=== PATIENT | male | born 1965 | race Caucasian/White ===

== ENCOUNTER 2020-09-18 17:16 | Observation (INO) ==
[2020-09-18] MEDS ORDERED: ASPIRIN CHEW 324 MG PO STA (17:38)
[2020-09-18 17:57] LABS: Basophils # (auto) 0.01 K/uL (0-0.2); Basophils % (auto) 0.1 %; Eosinophils # (auto) 0.15 K/uL (0-0.5); Eosinophils % (auto) 1.4 %; Hematocrit (blood only) 45.5 % (42-52); Hemoglobin 15.6 g/dL (14.0-18.0); Immature Granulocytes # (auto) 0.03 K/uL (0.00-0.02); Immature Granulocytes % (auto) 0.3 %; Lymphocytes # (auto) 1.74 K/uL (1.2-3.4); Lymphocytes % (auto) 16.5 %; Mean Corpuscular Hemoglobin 32.3 pg (25-34); Mean Corpuscular Hgb Conc 34.3 g/dL (32-36); Mean Corpuscular Volume 94.2 fL (80-100); Mean Platelet Volume 11.2 fL (7.4-10.4); Monocytes # (auto) 1.27 K/uL (0.11-0.59); Neutrophils # (auto) 7.37 K/uL (1.4-6.5); Neutrophils % (auto) 69.7 %; Platelet Count 303 K/uL (130-400); RDW Coefficient of Variation 13.5 % (11.5-14.5); RDW Standard Deviation 46.4 fL (36.4-46.3); Red Blood Count 4.83 M/uL (4.7-6.1); White Blood Count 10.57 K/uL (4.8-10.8)
[2020-09-18 18:10] LABS: Partial Thromboplastin Ratio 1.1; Partial Thromboplastin Time 29.3 Seconds (21.0-31.0)
[2020-09-18 18:13] LABS: BUN Creatinine Ratio 19.4 (10-20); Calcium 9.5 mg/dl (8.5-10.1); Est GFR (African American) 53.3 ml/min; Potassium 4.2 mmol/L (3.5-5.1)
[2020-09-18 18:18] LABS: Troponin I 0.024 ng/ml (0-0.045)
--- NOTE | 2020-09-18 18:25 | XRay Report ---
XR chest 2V PA/lateral HISTORY: Midsternal Chest Pain COMPARISON: None. FINDINGS: There are low lung volumes. The cardiac silhouette is mildly enlarged. This may be accentua farnaz by the low lung volumes. No pleural effusions. No pneumothorax. No focal lung consolidations to s uggest pneumonia. No evidence for pulmonary edema. IMPRESSION: Mild cardiomegaly. Otherwise, no acute process within the chest. ACT 112: Negative or not required by law. Electronically signed by: Kwaku Andrade M.D. 09/18/2020 6:23 PM
--- NOTE | 2020-09-18 19:15 | Emergency Department Note ---
History of Present Illness General Chief Complaint: Chest Pain Stated Complaint: CHEST PAIN Time Seen by Provider: 09/18/20 17:37 History of Present Illness Provider Complaint: chest pain Onset (ago): day(s) 1 Duration: intermittent and now resolved Onset: during rest Pain Radiation: none Severity: moderate Maximum Pain Intensity: 5 Current Pain Intensity: 0 Quality: + sharp Relieved By: + nothing Exacerbated By: + nothing Context: no recent illness, no recent surgery, no recent immobilization, no recent travel, no trauma/injury, no new medications or no history of DVT/PE Associated symptoms: + nausea and + diaphoresis; no vomiting, no dyspnea, no syncope, no palpitations, no fever, no cough or no leg swelling Home Medications Medication Instructions Recorded Confirmed Type ascorbic acid (vitamin C) 500 mg 500 mg PO QAM 09/18/20 09/18/20 History tablet (Vitamin C) aspirin 81 mg tablet,delayed 162 mg PO QAM 09/18/20 09/18/20 History release (Aspirin Low Dose) Allergies Allergy/AdvReac Type Severity Reaction Status Date / Time No Known Allergies Allergy Unverified 09/18/20 18:15 Past Med/Surg History Medical History (Updated 09/18/20 @ 19:15 by Vito Reynoso) HLD (hyperlipidemia) HTN (hypertension) Surgical History (Updated 09/18/20 @ 19:10 by Vito Reynoso) No pertinent past surgical history Family History (Updated 09/18/20 @ 19:11 by Vito Reynoso) Other CHF (congestive heart failure) Cardiomyopathy Heart disease Hypertension Myocardial infarction Review of Systems A total of 10 systems reviewed and were otherwise negative Physical Exam Vital Signs Vital Signs - 24 hr 09/18/20 17:28 09/18/20 17:31 09/18/20 17:46 Temperature 37.5 C Temperature Source Temporal Artery Scan Pulse Rate 94 H Pulse Rate [Left Finger] 78 90 Pulse Rhythm [Left Finger] Regular Regular Pulse Strength [Left Finger] Normal Normal Respiratory Rate 20 20 20 Respiratory Effort / Characteristics Non-Labored Spontaneous Non-Labored Spontaneous Non-Labored Spontaneous Respiratory Depth Normal Normal Normal Respiratory Pattern Regular Regular Blood Pressure 182/97 H Blood Pressure [Right Arm] 165/103 H 132/98 Blood Pressure Mean 125 Blood Pressure Mean [Right Arm] 123 109 Blood Pressure Position Sitting Blood Pressure Position [Right Arm] Sitting Sitting Pulse Oximetry 93 97 98 Oxygen Delivery Method Room Air Room Air Room Air Sepsis Recent Fever Within 48 Hours No Sepsis New/Unexplained Change in Mental Status N/A Sepsis Action Taken by Nursing No Action Required 09/18/20 17:56 09/18/20 18:47 Temperature Temperature Source Pulse Rate Pulse Rate [Left Finger] 88 Pulse Rhythm [Left Finger] Regular Pulse Strength [Left Finger] Normal Respiratory Rate 20 Respiratory Effort / Characteristics Non-Labored Spontaneous Respiratory Depth Normal Respiratory Pattern Regular Blood Pressure Blood Pressure [Right Arm] 146/84 H Blood Pressure Mean Blood Pressure Mean [Right Arm] 104 Blood Pressure Position Blood Pressure Position [Right Arm] Sitting Pulse Oximetry 95 96 Oxygen Delivery Method Room Air Room Air Sepsis Recent Fever Within 48 Hours Sepsis New/Unexplained Change in Mental Status Sepsis Action Taken by Nursing Physical Exam GENERAL: He is oriented to person, place, and time. He appears well-developed and well-nourished. He does not appear distressed. HENT: Exam performed. - Head: Normocephalic and atraumatic. - Right Ear: External ear normal. No mastoid tenderness. - Left Ear: External ear normal. No mastoid tenderness. - Mouth/Throat: The oropharynx is clear and moist. No trismus in the jaw. No dental abscesses or uvula swelling. No oropharyngeal exudate or tonsillar absces ses. EYES: Conjunctivae and EOM are normal. Pupils are equal, round, and reactive to light. Right eye exhibits no discharge. Left eye exhibits no discharge. No scleral icterus. NECK: Normal range of motion. Neck supple. No JVD present. No spinous process tenderness present. No carotid bruit present. No rigidity. No tracheal deviation and normal range of motion present. No Brudzinski's sign and no Kernig's sign noted. CV: Normal rate, regular rhythm, normal heart sounds and intact distal pulses. There is no peripheral edema. Palpable radial pulses bue. PULM/CHEST: Effort normal and breath sounds normal. No respiratory distress. No stridor. He has no wheezes. He has no rales. - Chest Wall: He exhibits no tenderness. ABD: The abdomen is soft. Bowel sounds are normal. He has no distension. No mass is present. There is no tenderness. There is no rebound, no guarding, no Jalloh's sign and no tenderness at McBurney's point. Rovsig negative. MUSC/SKEL: Normal range of motion. There is no peripheral edema, tenderness or deformity. LYMPH: No cervical adenopathy. NEURO: He is alert and oriented to person, place, and time. He has normal strength. No cranial nerve deficit or sensory deficit. Coordination and gait normal. GCS eye subscore is 4. GCS verbal subscore is 5. GCS motor subscore is 6. Cerebellar tests wnl. SKIN: Skin is warm and dry. He is not diaphoretic. PSYCH: He has a normal mood and affect. Behavior is normal. Judgment and thought content normal. Course Course 1736: The patient was evaluated in room B1. A complete history and physical exam was performed Cardiac monitoring: An order was placed for continuous cardiac monitoring. The monitor shows a rate of 90 with sinus rhythm EMR reviewed. No previous EKGs to compare. EKG does show T wave inversions in leads I and aVL. Will conduct cardiac panel and plan on admitting the patient to the hospital service for rule out ACS given his EKG. 1900: Vital signs stable. Labs and imaging within normal limits. Discussed case with Dr. [facility] hospitalist who agrees to evaluate the patient for admission. Administered Medications Discontinued Medications Aspirin (Aspirin Chew 324 Mg) 324 mg PO NOW STA Stop: 09/18/20 17:39 Last Admin: 09/18/20 17:52 Dose: 324 mg Documented by: [id number] Medical Decision Making Laboratory Data Result diagrams: 09/18/20 17:45 09/18/20 17:45 Labs: Lab Results 09/18/20 09/18/20 09/18/20 Range/Units 17:45 17:45 17:45 WBC 10.57 (4.8-10.8) K/uL RBC 4.83 (4.7-6.1) M/uL Hgb 15.6 (14.0-18.0) g/dL Hct 45.5 (42-52) % MCV 94.2 (80-100) fL MCH 32.3 (25-34) pg MCHC 34.3 (32-36) g/dL RDW Std Deviation 46.4 H (36.4-46.3) fL RDW Coeff of Andrew 13.5 (11.5-14.5) % Plt Count 303 (130-400) K/uL MPV 11.2 H (7.4-10.4) fL Immature Gran % (Auto) 0.3 % Neut % (Auto) 69.7 % Lymph % (Auto) 16.5 % [place] % (Auto) 12.0 % Eos % (Auto) 1.4 % Baso % (Auto) 0.1 % Neut # (Auto) 7.37 H (1.4-6.5) K/uL Lymph # (Auto) 1.74 (1.2-3.4) K/uL [place] # (Auto) 1.27 H (0.11-0.59) K/uL Eos # (Auto) 0.15 (0-0.5) K/uL Baso # (Auto) 0.01 (0-0.2) K/uL Immature Gran # (Auto) 0.03 H (0.00-0.02) K/uL PT 10.0 (9.0-12.0) Seconds INR 1.0 (0.9-1.1) APTT 29.3 (21.0-31.0) Seconds PTT Ratio 1.1 Sodium 138 (136-145) mmol/L Potassium 4.2 (3.5-5.1) mmol/L Chloride 107 (98-107) mmol/L Carbon Dioxide 29 (21-32) mmol/L Anion Gap 2.0 L (3-11) BUN 32 H (7-18) mg/dl Creatinine 1.67 H (0.6-1.4) mg/dl Est Cr Clr Drug Dosing 73.0 ml/min Est GFR ( Amer) 53.3 ml/min Est GFR (Non-Af Amer) 46.0 ml/min BUN/Creatinine Ratio 19.4 (10-20) Glucose 102 H (70-99) mg/dl Calcium 9.5 (8.5-10.1) mg/dl Troponin I 0.024 (0-0.045) ng/ml Lipase 150 (73-393) U/L COVID-19 Eval Order SARS-CoV-2 (PCR) (Negative) 09/18/20 09/18/20 Range/Units 18:00 18:00 WBC (4.8-10.8) K/uL RBC (4.7-6.1) M/uL Hgb (14.0-18.0) g/dL Hct (42-52) % MCV (80-100) fL MCH (25-34) pg MCHC (32-36) g/dL RDW Std Deviation (36.4-46.3) fL RDW Coeff of Andrew (11.5-14.5) % Plt Count (130-400) K/uL MPV (7.4-10.4) fL Immature Gran % (Auto) % Neut % (Auto) % Lymph % (Auto) % [place] % (Auto) % Eos % (Auto) % Baso % (Auto) % Neut # (Auto) (1.4-6.5) K/uL Lymph # (Auto) (1.2-3.4) K/uL [place] # (Auto) (0.11-0.59) K/uL Eos # (Auto) (0-0.5) K/uL Baso # (Auto) (0-0.2) K/uL Immature Gran # (Auto) (0.00-0.02) K/uL PT (9.0-12.0) Seconds INR (0.9-1.1) APTT (21.0-31.0) Seconds PTT Ratio Sodium (136-145) mmol/L Potassium (3.5-5.1) mmol/L Chloride (98-107) mmol/L Carbon Dioxide (21-32) mmol/L Anion Gap (3-11) BUN (7-18) mg/dl Creatinine (0.6-1.4) mg/dl Est Cr Clr Drug Dosing ml/min Est GFR ( Amer) ml/min Est GFR (Non-Af Amer) ml/min BUN/Creatinine Ratio (10-20) Glucose (70-99) mg/dl Calcium (8.5-10.1) mg/dl Troponin I (0-0.045) ng/ml Lipase (73-393) U/L COVID-19 Eval Order Covid19 at [facility] SARS-CoV-2 (PCR) NEGATIVE (Negative) Imaging Data Chest x-ray: Radiologist's impression: Chest X-Ray 09/18/20 17:38 XR chest 2V PA/lateral HISTORY: Midsternal Chest Pain COMPARISON: None. FINDINGS: There are low lung volumes. The cardiac silhouette is mildly enlarged. This may be accentuated by the low lung volumes. No pleural effusions. No pneumothorax. No focal lung consolidations to suggest pneumonia. No evidence for pulmonary edema. IMPRESSION: Mild cardiomegaly. Otherwise, no acute process within the chest. ACT 112: Negative or not required by law. Electronically signed by: Kwaku Andrade M.D. 09/18/2020 6:23 PM ECG Data Additional Comments: EKG #1 at 1731: Sinus rhythm with rate of 89. GA QRS and QTc intervals within normal limits. No ST elevation or ST depression. T wave inversion in leads I and aVL. EKG #2 at 1752:sinus rhythm with rate of 87. GA QRS and QTc intervals within normal limits. No ST elevation or ST depression. T wave inversions in leads I and aVL MDM Narrative 1737: The patient was evaluated in room B1. A complete history and physical exam was performed Cardiac monitoring: An order was placed for continuous cardiac monitoring. The monitor shows a rate of 90 with sinus rhythm EMR reviewed. No previous EKGs to compare. EKG does show T wave inversions in leads I and aVL. Will conduct cardiac panel and plan on admitting the patient to the hospital service for rule out ACS given his EKG. 1900: Vital signs stable. Labs and imaging within normal limits. Discussed case with Dr. [facility] hospitalist who agrees to evaluate the patient for admission. Impression & Plan Chest pain Discharge Plan Visit Data Chief Complaint: Chest Pain Stated Complaint: CHEST PAIN ED Provider: Vito Reynoso Discharge Problem: Chest pain Patient Disposition: Being Evaluated by Hospitalist Forms Stand Alone Forms: [facility] [employer] Prescriptions Prescriptions: No Action aspirin [Aspirin Low Dose] 81 mg Tablet,Delayed Release (Dr/Ec) 162 mg PO QAM RF: 0 ascorbic acid (vitamin C) [Vitamin C] 500 mg Tablet 500 mg PO QAM RF: 0 Referrals Referrals: Liya Ames [Primary Care Provider] - Discharge Problem: Chest pain Qualifiers: Chest pain type: unspecified Qualified Code(s): R07.9 - Chest pain, unspecified
[2020-09-18] MEDS ORDERED: METOPROLOL TARTRATE 1 MG/ML VIAL IV STA (19:27)
--- NOTE | 2020-09-18 19:36 | History & Physical Report ---
Date of Service September 18, 2020 Assessment & Plan (1) Chest pain: Plan: R/o Ischemia patient with risk factors of obesity, family history, HLD, HTN, Tobacco use - Symptoms are concerning for ischemia - This far out from his initial symptoms would expect to see higher evidence of Troponin I, with no comparison ECG available - Follow ECG and Troponi I for dynamic change or rise and fall - Metoprolol 5mg IV q6 scheduled to decrease his double product, Hold for HR 60 - Continue aspirin - NPO after midnight, if second troponin negative stress test with ECHO in morning - Will need pharmacologic intervention for outpatient HTN (2) HLD (hyperlipidemia): Plan: Myalgias with atorvastatin in the past reportedly - lipid panel in the morning attempt another statin pending on lipid panel (3) HTN (hypertension): Plan: As above (4) Obesity: Plan: Will need to reduce weight for morbidity modification History of Present Illness Primary Care Provider: Liya Ames 55 YOM with past medical history of: Obesity, HTN, HLD. Patient was woken up this morning at approx. 0230 with sharp chest pain substernal left side of his chest that he ranked 8/10 which was followed by nausea without vomiting, dyspnea and diaphoresis, this pain did not radiate anywhere. He rested and it went away, he got up in the morning took his aspirin and went to work. He works for [employer] and worked a full day today, without return of the chest pain. He did note however that with walking and exertion, that he had some dyspnea. Patient does chew tobacco, drinks occasionally throughout the year, " a case a beer a year if that". He has a family history of father having an MA followed by heart failure and at 74 years of age. A brother that has had "chest pain". He denies any recent illnesses. He was on atorvastatin reportedly in the past but stopped it secondary to myalgias, for his HTN he was previously on lisinopril, which stopped as well as HCTZ. he does take a daily 81mg ASA. In the EMD he remains chest pain free, had an ECG done, which we do not have a comparison for. This showed t wave inversions in I and AVL with ST up sloping in V2 and V3. His initial troponin was 0.024. Patient will be observed overnight on telemetry unit, trending of his ECG and Troponin I, started on IV BB and continue asa. He has not had his COVID vaccine and COVID test on admission is Negative. Allergies Allergy/AdvReac Type Severity Reaction Status Date / Time No Known Allergies Allergy Unverified 09/18/20 18:15 Home Medications Medication Instructions Recorded Confirmed Type ascorbic acid (vitamin C) 500 mg 500 mg PO QAM 09/18/20 09/18/20 History tablet (Vitamin C) aspirin 81 mg tablet,delayed 162 mg PO QAM 09/18/20 09/18/20 History release (Aspirin Low Dose) Past Med/Surg History Medical History (Updated 09/18/20 @ 20:19 by NICOLE Oliver) HLD (hyperlipidemia) HTN (hypertension) Surgical History (Updated 09/18/20 @ 19:52 by NICOLE Oliver) No pertinent past surgical history S/P repair of hydrocele Family History Other CHF (congestive heart failure) Cardiomyopathy Heart disease Hypertension Myocardial infarction Social History (Updated 09/18/20 @ 19:48 by NICOLE Oliver) Tobacco Type: Smokeless Tobacco (Dip or Chew) Do You Dip or Chew Tobacco: Yes; Hx Alcohol Use: Yes (infrequent use) Alcohol Intake Frequency: Monthly or Less Hx Substance Use: No marital status: Current Living Situation: Spouse current occupational status: employed current occupation: [employer] Feels Safe at Home: Yes Review of Systems Review of Systems: REVIEW OF SYSTEMS: Constitutional: No fever, sweats or chills Eyes: No diplopia, no worsening or blurred vision ENT: normal hearing, no trouble swallowing Respiratory: No cough, sputum, dyspnea at rest or on exertion Cardiovascular: (+) chest pain, tightness or palpitations Abdomen: (+) per HPI No pain, nausea, vomiting, diarrhea or constipation Musculoskeletal: (+) left knee joint pain, NO calf pain, swelling Neurologic: No weakness, numbness/tingling, or balance problems Psychiatric: No anxiety or depression Skin: No rash or itch Physical Exam Physical Exam: PHYSICAL EXAM: General: awake, alert, no apparent distress Head: Normocephalic, atraumatic ENT: PERRL, EOMI, no pharyngeal exudate, mucous membranes moist Neuro: AAO x 3, speech clear and appropriate, strength intact bilaterally 5/5, sensation intact and equal all extremities and dermatomes, no pronator drift Chest: equal rise and fall of the chest, no accessory muscle use, no heaves or thrills, Clear to auscultation, on room air, Cardiac: Regular rate and rhythm, telemetry reviewed- NSR, skin warm dry, cap refill <3 seconds, peripheral pulses +2 no JVD, no murmur, no edema GI: NABS x 4 quadrants, soft, nontender to palpation, no rebound, guarding or tenderness : Spontaneously voiding, no pain, no CVA tenderness, Extremities: Normal inspection, no peripheral edema or erythema, calfs nontender to palpation Psych: Normal mood and affect Skin: no rash or erythema Results & Data Results & Data ([facility]) Vital Signs (Past 12 Hours) Vital Signs Temp Pulse Pulse Resp BP BP Pulse Ox 09/18/20 19:05 84 18 161/83 H 95 09/18/20 18:47 88 20 146/84 H 96 09/18/20 17:56 95 09/18/20 17:46 90 20 132/98 98 09/18/20 17:31 78 20 165/103 H 97 09/18/20 17:28 37.5 C 94 H 20 182/97 H 93 Laboratory Results Abnormal lab results 09/18/20 09/18/20 Range/Units 17:45 17:45 RDW Std Deviation 46.4 H (36.4-46.3) fL MPV 11.2 H (7.4-10.4) fL Neut # (Auto) 7.37 H (1.4-6.5) K/uL [place] # (Auto) 1.27 H (0.11-0.59) K/uL Immature Gran # (Auto) 0.03 H (0.00-0.02) K/uL Anion Gap 2.0 L (3-11) BUN 32 H (7-18) mg/dl Creatinine 1.67 H (0.6-1.4) mg/dl Glucose 102 H (70-99) mg/dl Diagnostic Findings Chest X-Ray 09/18/20 17:38 XR chest 2V PA/lateral HISTORY: Midsternal Chest Pain COMPARISON: None. FINDINGS: There are low lung volumes. The cardiac silhouette is mildly enlarged. This may be accentuated by the low lung volumes. No pleural effusions. No pneumothorax. No focal lung consolidations to suggest pneumonia. No evidence for pulmonary edema. IMPRESSION: Mild cardiomegaly. Otherwise, no acute process within the chest. ACT 112: Negative or not required by law. Electronically signed by: Kwaku Andrade M.D. 09/18/2020 6:23 PM Medications Administered Discontinued Medications Aspirin (Aspirin Chew 324 Mg) 324 mg PO NOW STA Stop: 09/18/20 17:39 Last Admin: 09/18/20 17:52 Dose: 324 mg Documented by: [id number] ECG Additional Comments: Normal sinus rhythm Possible Left atrial enlargement Left ventricular hypertrophy T wave abnormality, consider lateral ischemia Abnormal ECG When compared with ECG of 18-SEP-2020 17:31, Code Status & VTE Plan Code Status CODE: FULL VTE: SCD's, Heparin 5000 units sub q VTE Prophylaxis Plan VTE Prophylaxis will be ordered: Yes Supervising Physician Co-Signing Physician Notes I supervised NICOLE Capps on this admission. I interviewed and examined the patient independently of him. The plan is as written in his note except for any following changes/exceptions: None 55yo M w/ hx of HTN and family cardiac history who presents with moderately suspicious symptoms for ACS. EKG with some lateral ST depression and TWIs; however, troponin is only 0.02 after hours of chest pain which would point away from active ischemic event. - Will trend troponins and EKGs - If negative, will order treadmill stress echo for the AM - Plan discussed with the patient and his who are satisfied with the plan. PG Care Time/CCT Total # of Minutes Spent Total Time Spent with Patient: Total time spent is greater than 50% in coordination of care (as documented) at patient's floor/unit and/or counseling patient: Coding Level of Care Code INT OBSERVATION CARE 70M LVL 3 Diagnoses Chest pain R07.9 Chest pain type: unspecified HLD (hyperlipidemia) E78.5 HTN (hypertension) I10 Obesity E66.9 (1) Chest pain Chest pain type: unspecified Qualified Code(s): R07.9 - Chest pain, unspecified
[2020-09-18] MEDS ORDERED: NITROGLYCERIN SL 0.4 MG/TAB TAB SL PRN (23:23)
[2020-09-18] MEDS ORDERED: ONDANSETRON INJ 2 MG/ML 2 ML VIAL IV PRN (23:23)
[2020-09-18] MEDS ORDERED: ACETAMINOPHEN 325 MG TAB PO PRN (23:23)
[2020-09-19] MEDS: METOPROLOL TARTRATE 1 MG/ML VIAL IV SCH ×3 (00:58→11:58)
[2020-09-19] MEDS: HEPARIN SOD 5,000 UNIT/0.5 ML VIAL SQ SCH ×3 (00:58→13:56)
[2020-09-19 07:10] LABS: Basophils # (auto) 0.03 K/uL (0-0.2); Basophils % (auto) 0.3 %; Eosinophils # (auto) 0.36 K/uL (0-0.5); Eosinophils % (auto) 3.9 %; Hemoglobin 14.3 g/dL (14.0-18.0); Immature Granulocytes # (auto) 0.02 K/uL (0.00-0.02); Immature Granulocytes % (auto) 0.2 %; Lymphocytes # (auto) 1.53 K/uL (1.2-3.4); Lymphocytes % (auto) 16.6 %; Mean Corpuscular Hemoglobin 31.6 pg (25-34); Mean Corpuscular Hgb Conc 33.3 g/dL (32-36); Mean Corpuscular Volume 94.9 fL (80-100); Mean Platelet Volume 11.2 fL (7.4-10.4); Monocytes # (auto) 1.18 K/uL (0.11-0.59); Monocytes % (auto) 12.8 %; Neutrophils # (auto) 6.08 K/uL (1.4-6.5); Neutrophils % (auto) 66.2 %; Platelet Count 256 K/uL (130-400); RDW Coefficient of Variation 13.6 % (11.5-14.5); RDW Standard Deviation 47.3 fL (36.4-46.3); Red Blood Count 4.53 M/uL (4.7-6.1)
[2020-09-19 07:52] LABS: Estimated Average Glucose 131 mg/dl; Hemoglobin A1C 6.2 % (4.5-5.6)
[2020-09-19 07:57] LABS: BUN Creatinine Ratio 19.7 (10-20); Calcium 8.6 mg/dl (8.5-10.1); Creatinine Clr Calc Pharmacy 84.7 ml/min; Est GFR (African American) 64.3 ml/min; Est GFR (Non-African American) 55.5 ml/min; Magnesium 2.1 mg/dl (1.8-2.4); Potassium 4.2 mmol/L (3.5-5.1)
--- NOTE | 2020-09-19 08:08 | Electrocardiogram Report ---
Test Reason : Blood Pressure : / mmHG Vent. Rate : 087 BPM Atrial Rate : 087 BPM P-R Int : 172 ms QRS Dur : 092 ms QT Int : 378 ms P-R-T Axes : 045 -15 103 degrees QTc Int : 454 ms Normal sinus rhythm Left atrial enlargement Left ventricular hypertrophy with repolarization abnormality Minor Anterior ST elevation, most consistent with repolarization variant Abnormal ECG When compared with ECG of 18-SEP-2020 17:31, No significant change was found Confirmed by Frank Aguirre ([id number]) on 09/19/2020 8:07:45 AM Referred By: Ben Blanton Confirmed By:Frank Aguirre
[2020-09-19] MEDS ORDERED: ASPIRIN 81 MG ECTAB PO SCH (09:00)
[2020-09-19] MEDS ORDERED: ASCORBIC ACID 500 MG TAB PO SCH (09:00)
--- NOTE | 2020-09-19 09:07 | Electrocardiogram Report ---
Test Reason : Blood Pressure : / mmHG Vent. Rate : 089 BPM Atrial Rate : 089 BPM P-R Int : 176 ms QRS Dur : 090 ms QT Int : 372 ms P-R-T Axes : 052 -15 096 degrees QTc Int : 452 ms Normal sinus rhythm Left atrial enlargement Left ventricular hypertrophy with repolarization abnormality Abnormal ECG No previous ECGs available Confirmed by Frank Aguirre ([id number]) on 09/19/2020 9:07:10 AM Referred By: Ben Blanton Confirmed By:Frank Aguirre
--- NOTE | 2020-09-19 09:08 | Electrocardiogram Report ---
Test Reason : Blood Pressure : / mmHG Vent. Rate : 078 BPM Atrial Rate : 078 BPM P-R Int : 186 ms QRS Dur : 096 ms QT Int : 416 ms P-R-T Axes : 068 -08 080 degrees QTc Int : 474 ms Normal sinus rhythm Left atrial enlargement Nonspecific T wave abnormality Lateral leads Prolonged QT Abnormal ECG When compared with ECG of 18-SEP-2020 17:52, Voltage criteria for left ventricular hypertrophy no longer present Confirmed by Frank Aguirre ([id number]) on 09/19/2020 9:07:51 AM Referred By: Ben Blanton Confirmed By:Frank Aguirre
--- NOTE | 2020-09-19 16:43 | XCELERA ---
[id number]
--- NOTE | 2020-09-19 19:34 | Discharge Summary ---
Date of Service September 19, 2020 Admission HPI Per Admitting Provider 55 YOM with past medical history of: Obesity, HTN, HLD. Patient was woken up this morning at approx. 0230 with sharp chest pain substernal left side of his chest that he ranked 8/10 which was followed by nausea without vomiting, dyspnea and diaphoresis, this pain did not radiate anywhere. He rested and it went away, he got up in the morning took his aspirin and went to work. He works for [employer] and worked a full day today, without return of the chest pain. He did note however that with walking and exertion, that he had some dyspnea. Patient does chew tobacco, drinks occasionally throughout the year, " a case a beer a year if that". He has a family history of father having an OR followed by heart failure and at 74 years of age. A brother that has had "chest pain". He denies any recent illnesses. He was on atorvastatin reportedly in the past but stopped it secondary to myalgias, for his HTN he was previously on lisinopril, which stopped as well as HCTZ. he does take a daily 81mg ASA. In the EMD he remains chest pain free, had an ECG done, which we do not have a comparison for. This showed t wave inversions in I and AVL with ST up sloping in V2 and V3. His initial troponin was 0.024. Patient will be observed overnight on telemetry unit, trending of his ECG and Troponin I, started on IV BB and continue asa. He has not had his COVID vaccine and COVID test on admission is Negative. Principal Diagnosis chest pain with non diagnostic stress test uncontrolled hypertension obesity Discharge Exam The patient appeared no distress but morbidly obese l Vital signs as documented. Lungs are clear to auscultation and appear unlabored Cardiac exam, Rhythm is regular.. No murmurs, rubs or gallops. Abdominal exam reveals normal bowel sounds, soft non tender, no masses Extremities are nonedematous and both pedal pulses are normal. Neurologic exam is alert and oriented, no focal loss of strength or sensation Skin is without bruises or rashes Psychologically is without concerns for anxiety or depression. Discharge Data Allergies Allergy/AdvReac Type Severity Reaction Status Date / Time No Known Allergies Allergy Unverified 09/18/20 18:15 Consultations 07/27/21 19:02 ED Decision to Admit Stat Hospital Course (1) Chest pain: No acute troponin change or EKG change stress test did not show any significant wall motion abnormalities but was nondiagnostic to the failure to achieve maximum predicted heart rate - Follow ECG and Troponi I for dynamic change or rise and fall -Choose metoprolol for blood pressure control as it can inhibit weight loss in a morbidly obese patients - Continue aspirin will start Dyazide and amlodipine encourage marked lifestyle changes and follow-up with family doctor in short order Resting echo shows EF of 55-60 normal LV function mild aortic regurgitation mild pericardial effusion without evidence tamponade physiology significant LVH (2) HLD (hyperlipidemia): Myalgias with atorvastatin in the past reportedly - lipid panel in the morning attempt another statin pending on lipid panel (3) HTN (hypertension): Amlodipine started (4) Obesity: Will need to reduce weight for morbidity modification recommend outpatient counseling to markedly change his risk factors of cardiovascular disease Total Time Total Time Spent Total Time Spent (In Minutes): It required greater than 30 minutes to prepare this patient for discharge Discharge Plan Discharge Items Patient Disposition: Home - Self-Care Reason For Visit: CHEST PAIN R/O ISCHEMIA Discharge Diagnosis: chest pain uncontrolled hypertension chronic renal failure Activity: Per Instructions section Activity Comment: gradually increase physical activity Non-emergency contact: Primary Care Provider Call non-emergency contact if: you have any medication questions and your symptoms worsen Follow-up/Referrals: Liya Ames [Primary Care Provider] - 09/24/20 3:10 pm (Dr Sen and Dr Floyd) Diet: Heart Healthy and Low Sodium (2gm) Addtl Attending Provider Instructions: Please follow up with your primary care to make a plan to reduce your cardiovascular risk factors some suggestions would be to keep your daily sodium less than 2000mg a day reduce or eliminate alcohol and caffiene start walking, first slow and short distances your stress test was non diagnositc, limited by high blood pressure your primary care may decide to re test you once your blood pressure is better controlled. There are many blood pressure medications, we will start with one and you family doctor may wish to adjust or change this over time Pending Studies at Discharge: No Stand-Alone Forms: [employer], Smoking Cessation Medications and DC Order Prescriptions: New spironolacton-hydrochlorothiaz 25-25 mg tablet 1 tab PO DAILY Qty: 30 RF: 0 amlodipine 5 mg tablet 5 mg PO DAILY Qty: 30 RF: 0 Continued aspirin [Aspirin Low Dose] 81 mg Tablet,Delayed Release (Dr/Ec) 162 mg PO QAM RF: 0 ascorbic acid (vitamin C) [Vitamin C] 500 mg Tablet 500 mg PO QAM RF: 0 Discharge Orders: Discharge Order (Routine); Ordered 09/19/20 Ordered By: Rocael Pedersen/Other Patient Handouts: A1C, Prediabetes, 5 Steps for Eating Healthier Admission Data Admit Date/Time: 09/18/20 19:32 Attending Provider: Rocael Delgadillo Admit Provider: Uziel Melvin Primary Care Provider: Liya Ames Other Providers: Adam Swift Other Interventions: Discharge Summary Assessment (RN) Last Done: 09/19/20 15:55 Coding Level of Care Code D/C DAY MANAGEMENT >30 MINS Diagnoses Chest pain R07.9 Chest pain type: unspecified HLD (hyperlipidemia) E78.5 HTN (hypertension) I10 Obesity E66.9
== END 2020-09-19 16:56 | disposition home or self-care (01) ==
LOC: ED 17:16 → 2N 17:16 → SUATTDRO 19:32 → 2N 23:00

== ENCOUNTER 2020-10-05 06:05 | Inpatient (IN) ==
[2020-10-05 06:42] LABS: Basophils # (auto) 0.03 K/uL (0-0.2); Basophils % (auto) 0.2 %; Eosinophils # (auto) 0.08 K/uL (0-0.5); Eosinophils % (auto) 0.4 %; Hematocrit (blood only) 38.5 % (42-52); Hemoglobin 13.1 g/dL (14.0-18.0); Immature Granulocytes # (auto) 0.07 K/uL (0.00-0.02); Immature Granulocytes % (auto) 0.4 %; Lymphocytes # (auto) 1.38 K/uL (1.2-3.4); Lymphocytes % (auto) 7.1 %; Mean Corpuscular Hemoglobin 31.5 pg (25-34); Mean Corpuscular Volume 92.5 fL (80-100); Mean Platelet Volume 10.3 fL (7.4-10.4); Monocytes # (auto) 2.45 K/uL (0.11-0.59); Monocytes % (auto) 12.6 %; Neutrophils # (auto) 15.45 K/uL (1.4-6.5); Neutrophils % (auto) 79.3 %; Platelet Count 570 K/uL (130-400); RDW Coefficient of Variation 13.8 % (11.5-14.5); RDW Standard Deviation 46.5 fL (36.4-46.3); Red Blood Count 4.16 M/uL (4.7-6.1); White Blood Count 19.46 K/uL (4.8-10.8)
[2020-10-05 07:02] LABS: Albumin Level 2.7 gm/dl (3.4-5.0); BUN Creatinine Ratio 23.8 (10-20); Calcium 9.3 mg/dl (8.5-10.1); Creatinine Clr Calc Pharmacy 41.7 ml/min; Est GFR (African American) 28.4 ml/min; Est GFR (Non-African American) 24.5 ml/min; Partial Thromboplastin Ratio 1.2; Partial Thromboplastin Time 32.8 Seconds (21.0-31.0); Potassium 4.1 mmol/L (3.5-5.1)
[2020-10-05] MEDS ORDERED: SODIUM CHLORIDE 0.9% 1000ML 1,000 ML IV ONE (07:05)
--- NOTE | 2020-10-05 07:08 | XRay Report ---
SINGLE VIEW CHEST CLINICAL HISTORY: Atypical chest pain. FINDINGS: An AP, portable, upright chest radiograph is compared to study dated 09/18/2020. The heart i s enlarged. The pulmonary vasculature is noncongested. There is mild elevation of the right hemidiaph ragm and bibasilar atelectasis. No airspace consolidation or large pleural effusion is identified. No pneumothorax is seen. The bony thorax is grossly intact. IMPRESSION: Cardiomegaly with no acute cardiopulmonary abnormality. ACT 112: Negative or not required by law. Electronically signed by: Garrett Kelly M.D. 10/05/2020 7:06 AM
--- NOTE | 2020-10-05 07:21 | Emergency Department Note ---
History of Present Illness General Chief complaint: Cardiac Assessment Stated complaint: PAIN LEFT CHEST WHEN BREATHING Time Seen by Provider: 10/05/20 06:33 Source: patient History of Present Illness Provider complaint: Chest pain Onset (ago): hour(s) Location: chest and right Radiation: non-radiation Pain Consistency: + constant Maximum Pain Intensity: 6 Quality: + sharp (When he takes a deep breath) and + dull Relieved By: + other (Leaning forward) Exacerbated By: + other (Deep breaths and lying backwards; not affected by food intake) Associated symptoms: + chest pain, + cough (Dry cough since starting high blood pressure medications 3 weeks ago) and + shortness of breath; no fever/chills or no nausea/vomiting This is a 55-year-old male who presents with chest pain starting at 7 PM last night. He describes it as sharp pain on the right side of his chest without radiation. He rates it a 6 out of 10 in severity. It is worse when he takes deep breath or if he lies back. It is not affected by food intake. He states it feels better when he leans forward. The pain is dull but when he takes a deep breath it is sharp. He has associated shortness of breath. He denies any leg swelling or pain but his states that in February his left leg was red and painful. He had a Doppler at that time which was negative for DVT. He has no history of PE or DVT. He has had no recent immobilization. He denies any fever or recent illness. He did not get the COVID-19 vaccination. He has had no abdominal pain, vomiting, diarrhea, rash or tick bite. He denies any urinary symptoms. Home Medications Medication Instructions Recorded Confirmed Type ascorbic acid (vitamin C) 500 mg 500 mg PO QAM 09/18/20 10/05/20 History tablet (Vitamin C) aspirin 81 mg tablet,delayed 162 mg PO QAM 09/18/20 10/05/20 History release (Aspirin Low Dose) amlodipine 5 mg tablet (Norvasc) 5 mg PO QAM 10/05/20 10/05/20 History spironolactone 25 1 tab PO QAM 10/05/20 10/05/20 History mg-hydrochlorothiazide 25 mg tablet (Aldactazide) Allergies Allergy/AdvReac Type Severity Reaction Status Date / Time No Known Allergies Allergy Unverified 10/05/20 07:49 Past Med/Surg History Medical History HLD (hyperlipidemia) HTN (hypertension) Surgical History No pertinent past surgical history S/P repair of hydrocele Family History Other CHF (congestive heart failure) Cardiomyopathy Heart disease Hypertension Myocardial infarction Social History Smoking Status: Never smoker Tobacco Type: Smokeless Tobacco (Dip or Chew) Second Hand Exposure: No; Do You Dip or Chew Tobacco: Yes; Tobacco Cessation Education Requested by Patient: No Hx Alcohol Use: Yes Alcohol type: beer Alcohol Intake Frequency: Monthly or Less Hx Substance Use: No Preferred Language: Bahamian Communication Ability: Effective Dry Cure Worker Required: No Beliefs That Will Affect Care: None marital status: Current Living Situation: Spouse Current Living Situation Comment: Ruben Lopez (story and 02/24) current occupational status: employed current occupation: [employer] Other Information That Helps Us Care for You: No Feels Safe at Home: Yes Safety Concerns: Feels Safe At This Time Assistive Devices: Glasses Review of Systems See HPI for pertinent positives & negatives. and A total of 10 systems reviewed and were otherwise negative Physical Exam Vital Signs Vital Signs - 24 hr 10/05/20 06:09 10/05/20 06:18 10/05/20 06:30 Temperature 36.9 C Temperature Source Temporal Artery Scan Pulse Rate 91 H 87 85 Pulse Rate from SpO2 Sensor 87 86 Respiratory Rate 20 30 H 21 Respiratory Effort / Characteristics Non-Labored Spontaneous Respiratory Depth Normal Blood Pressure 118/73 133/71 129/71 Blood Pressure Mean 88 91 90 Pulse Oximetry 93 94 93 Oxygen Delivery Method Room Air Sepsis Recent Fever Within 48 Hours No Sepsis New/Unexplained Change in Mental Status No Sepsis Action Taken by Nursing No Action Required 10/05/20 06:32 10/05/20 07:00 10/05/20 07:30 Temperature Temperature Source Pulse Rate 85 83 Pulse Rate from SpO2 Sensor 85 83 Respiratory Rate 20 21 Respiratory Effort / Characteristics Respiratory Depth Blood Pressure 129/74 134/84 Blood Pressure Mean 92 100 Pulse Oximetry 94 95 Oxygen Delivery Method Room Air Room Air Sepsis Recent Fever Within 48 Hours Sepsis New/Unexplained Change in Mental Status Sepsis Action Taken by Nursing 10/05/20 08:00 10/05/20 09:30 10/05/20 10:01 Temperature Temperature Source Pulse Rate 79 80 79 Pulse Rate from SpO2 Sensor 78 Respiratory Rate 21 23 Respiratory Effort / Characteristics Respiratory Depth Blood Pressure 102/50 L 133/75 150/92 H Blood Pressure Mean 67 94 111 Pulse Oximetry 94 Oxygen Delivery Method Sepsis Recent Fever Within 48 Hours Sepsis New/Unexplained Change in Mental Status Sepsis Action Taken by Nursing Constitutional: Vital signs reviewed. Eyes: Pupils are equal round reactive to light. Conjunctiva are noninjected. ENT: Pharynx is clear without erythema or exudate. Mucous membranes are moist. Neck supple without meningeal signs. Respiratory: Clear to auscultation bilaterally. Breath sounds are equal bilaterally. Cardiovascular: Regular rate and rhythm. No rubs or gallops. GI: Soft, nondistended and nontender. Bowel sounds are present. Musculoskeletal: No peripheral edema. No lower extremity tenderness. Integumentary: No cyanosis. or jaundice. Neurological: The patient is awake and alert. No focal deficits. Psychiatric: Normal affect. Not anxious appearing. Course Administered Medications Heparin Sodium/Dextrose (Heparin Sodium/Dextrose) 25,000 units in 500 mls @ 35 mls/hr IV .[id number] [facility]; Protocol Stop: 11/04/20 10:29 Last Admin: 10/05/20 10:52 Dose: 1,750 units/hr, 35 mls/hr Documented by: [id number] Cosigned by: [id number] Sodium Chloride (Nss 1000ml) 1,000 mls @ 125 mls/hr IV .Q8H [facility] Stop: 11/04/20 11:46 Last Admin: 10/05/20 12:43 Dose: 125 mls/hr Documented by: [id number] Pantoprazole Sodium (Pantoprazole 40 Mg Tab) 40 mg PO DAILY [facility] Stop: 11/04/20 10:14 Last Admin: 10/05/20 10:52 Dose: 40 mg Documented by: [id number] Discontinued Medications Heparin Sodium/Dextrose (Heparin Iv Adult Wt-Based Standard *No* Bolus Protocol) 1 ea N/A ONE ONE; Protocol Stop: 10/05/20 10:10 Last Admin: 10/05/20 10:53 Dose: Not Given Documented by: [id number] Sodium Chloride (Nss 1000ml) 1,000 mls @ 999 mls/hr IV .[id number] ONE Stop: 10/05/20 08:05 Last Infusion: 10/05/20 08:48 Dose: 0 mls/hr Documented by: [id number] Admin: 10/05/20 07:26 Dose: 999 mls/hr Documented by: [id number] Medical Decision Making Differential Diagnosis Pericarditis, unstable angina, IL, pleurisy, pneumonia, GERD Medical Records Attestation: I reviewed the patient's medical records. I did perform a limited focused review of portions of the patient's old chart on the electronic medical record. The patient was admitted to the hospital September 18 for chest pain. He had a stress test in the hospital but this was nondiagnostic due to failure to reach adequate heart rate. Home Medications Current Medication List: was personally reviewed by me Laboratory Data Attestation: I reviewed the patient's lab results. Result diagrams: 10/05/20 06:25 10/05/20 06:25 Lab Results 10/05/20 10/05/20 10/05/20 Range/Units 06:25 06:25 06:25 WBC 19.46 H (4.8-10.8) K/uL RBC 4.16 L (4.7-6.1) M/uL Hgb 13.1 L (14.0-18.0) g/dL Hct 38.5 L (42-52) % MCV 92.5 (80-100) fL MCH 31.5 (25-34) pg MCHC 34.0 (32-36) g/dL RDW Std Deviation 46.5 H (36.4-46.3) fL RDW Coeff of Andrew 13.8 (11.5-14.5) % Plt Count 570 H (130-400) K/uL MPV 10.3 (7.4-10.4) fL Immature Gran % (Auto) 0.4 % Neut % (Auto) 79.3 % Lymph % (Auto) 7.1 % [place] % (Auto) 12.6 % Eos % (Auto) 0.4 % Baso % (Auto) 0.2 % Neut # (Auto) 15.45 H (1.4-6.5) K/uL Lymph # (Auto) 1.38 (1.2-3.4) K/uL [place] # (Auto) 2.45 H (0.11-0.59) K/uL Eos # (Auto) 0.08 (0-0.5) K/uL Baso # (Auto) 0.03 (0-0.2) K/uL Immature Gran # (Auto) 0.07 H (0.00-0.02) K/uL ESR (0-20) mm/hr APTT 32.8 H (21.0-31.0) Seconds PTT Ratio 1.2 D-Dimer 55457 H* (0-500) ug/L FEU Sodium 134 L (136-145) mmol/L Potassium 4.1 (3.5-5.1) mmol/L Chloride 105 (98-107) mmol/L Carbon Dioxide 21 (21-32) mmol/L Anion Gap 8.0 (3-11) BUN 67 H (7-18) mg/dl Creatinine 2.81 H (0.6-1.4) mg/dl Est Cr Clr Drug Dosing 41.7 ml/min Est GFR ( Amer) 28.4 ml/min Est GFR (Non-Af Amer) 24.5 ml/min BUN/Creatinine Ratio 23.8 H (10-20) Glucose 131 H (70-99) mg/dl Lactate (0.4-2.0) mmol/L Calcium 9.3 (8.5-10.1) mg/dl Magnesium (1.8-2.4) mg/dl Total Bilirubin 0.5 (0.2-1) mg/dl AST 40 H (15-37) U/L ALT 120 H (12-78) U/L Alkaline Phosphatase 138 H (45-117) U/L Troponin I 0.056 H* (0-0.045) ng/ml C-Reactive Protein (0-0.29) mg/dl Total Protein 8.2 (6.4-8.2) gm/dl Albumin 2.7 L (3.4-5.0) gm/dl Globulin 5.5 H (2.5-4.0) gm/dl Albumin/Globulin Ratio 0.5 L (0.9-2) Lipase 421 H (73-393) U/L Urine Color Urine Appearance (Clear) Urine pH (4.5-7.5) Ur Specific Laverne (1.000-1.030) Urine Protein (Negative) Urine Glucose (UA) (Negative) Urine Ketones (Negative) Urine Blood (Negative) Urine Nitrite (Negative) Urine Bilirubin (Negative) Urine Urobilinogen (Negative) Ur Leukocyte Esterase (Negative) Urine WBC (Auto) (0-5) /hpf Urine RBC (Auto) (0-4) /hpf U Hyaline Cast (Auto) (0-5) /lpf U Epithel Cells (Auto) (0-5) /lpf Urine Bacteria (Auto) (Negative) COVID-19 Eval Order SARS-CoV-2 (PCR) (Negative) 10/05/20 10/05/20 10/05/20 Range/Units 06:25 06:25 07:17 WBC (4.8-10.8) K/uL RBC (4.7-6.1) M/uL Hgb (14.0-18.0) g/dL Hct (42-52) % MCV (80-100) fL MCH (25-34) pg MCHC (32-36) g/dL RDW Std Deviation (36.4-46.3) fL RDW Coeff of Andrew (11.5-14.5) % Plt Count (130-400) K/uL MPV (7.4-10.4) fL Immature Gran % (Auto) % Neut % (Auto) % Lymph % (Auto) % [place] % (Auto) % Eos % (Auto) % Baso % (Auto) % Neut # (Auto) (1.4-6.5) K/uL Lymph # (Auto) (1.2-3.4) K/uL [place] # (Auto) (0.11-0.59) K/uL Eos # (Auto) (0-0.5) K/uL Baso # (Auto) (0-0.2) K/uL Immature Gran # (Auto) (0.00-0.02) K/uL ESR 110 H (0-20) mm/hr APTT (21.0-31.0) Seconds PTT Ratio D-Dimer (0-500) ug/L FEU Sodium (136-145) mmol/L Potassium (3.5-5.1) mmol/L Chloride (98-107) mmol/L Carbon Dioxide (21-32) mmol/L Anion Gap (3-11) BUN (7-18) mg/dl Creatinine (0.6-1.4) mg/dl Est Cr Clr Drug Dosing ml/min Est GFR ( Amer) ml/min Est GFR (Non-Af Amer) ml/min BUN/Creatinine Ratio (10-20) Glucose (70-99) mg/dl Lactate 0.7 (0.4-2.0) mmol/L Calcium (8.5-10.1) mg/dl Magnesium 2.2 (1.8-2.4) mg/dl Total Bilirubin (0.2-1) mg/dl AST (15-37) U/L ALT (12-78) U/L Alkaline Phosphatase (45-117) U/L Troponin I (0-0.045) ng/ml C-Reactive Protein 12.80 H (0-0.29) mg/dl Total Protein (6.4-8.2) gm/dl Albumin (3.4-5.0) gm/dl Globulin (2.5-4.0) gm/dl Albumin/Globulin Ratio (0.9-2) Lipase (73-393) U/L Urine Color Urine Appearance (Clear) Urine pH (4.5-7.5) Ur Specific La[place] (1.000-1.030) Urine Protein (Negative) Urine Glucose (UA) (Negative) Urine Ketones (Negative) Urine Blood (Negative) Urine Nitrite (Negative) Urine Bilirubin (Negative) Urine Urobilinogen (Negative) Ur Leukocyte Esterase (Negative) Urine WBC (Auto) (0-5) /hpf Urine RBC (Auto) (0-4) /hpf U Hyaline Cast (Auto) (0-5) /lpf U Epithel Cells (Auto) (0-5) /lpf Urine Bacteria (Auto) (Negative) COVID-19 Eval Order SARS-CoV-2 (PCR) (Negative) 10/05/20 10/05/20 10/05/20 Range/Units 08:02 08:02 08:14 WBC (4.8-10.8) K/uL RBC (4.7-6.1) M/uL Hgb (14.0-18.0) g/dL Hct (42-52) % MCV (80-100) fL MCH (25-34) pg MCHC (32-36) g/dL RDW Std Deviation (36.4-46.3) fL RDW Coeff of Andrew (11.5-14.5) % Plt Count (130-400) K/uL MPV (7.4-10.4) fL Immature Gran % (Auto) % Neut % (Auto) % Lymph % (Auto) % [place] % (Auto) % Eos % (Auto) % Baso % (Auto) % Neut # (Auto) (1.4-6.5) K/uL Lymph # (Auto) (1.2-3.4) K/uL [place] # (Auto) (0.11-0.59) K/uL Eos # (Auto) (0-0.5) K/uL Baso # (Auto) (0-0.2) K/uL Immature Gran # (Auto) (0.00-0.02) K/uL ESR (0-20) mm/hr APTT (21.0-31.0) Seconds PTT Ratio D-Dimer (0-500) ug/L FEU Sodium (136-145) mmol/L Potassium (3.5-5.1) mmol/L Chloride (98-107) mmol/L Carbon Dioxide (21-32) mmol/L Anion Gap (3-11) BUN (7-18) mg/dl Creatinine (0.6-1.4) mg/dl Est Cr Clr Drug Dosing ml/min Est GFR ( Amer) ml/min Est GFR (Non-Af Amer) ml/min BUN/Creatinine Ratio (10-20) Glucose (70-99) mg/dl Lactate (0.4-2.0) mmol/L Calcium (8.5-10.1) mg/dl Magnesium (1.8-2.4) mg/dl Total Bilirubin (0.2-1) mg/dl AST (15-37) U/L ALT (12-78) U/L Alkaline Phosphatase (45-117) U/L Troponin I (0-0.045) ng/ml C-Reactive Protein (0-0.29) mg/dl Total Protein (6.4-8.2) gm/dl Albumin (3.4-5.0) gm/dl Globulin (2.5-4.0) gm/dl Albumin/Globulin Ratio (0.9-2) Lipase (73-393) U/L Urine Color Yellow Urine Appearance Clear (Clear) Urine pH 5.0 (4.5-7.5) Ur Specific Laverne 1.014 (1.000-1.030) Urine Protein 1+ H (Negative) Urine Glucose (UA) Negative (Negative) Urine Ketones Negative (Negative) Urine Blood Negative (Negative) Urine Nitrite Negative (Negative) Urine Bilirubin Negative (Negative) Urine Urobilinogen Negative (Negative) Ur Leukocyte Esterase Negative (Negative) Urine WBC (Auto) 1-5 (0-5) /hpf Urine RBC (Auto) 0-4 (0-4) /hpf U Hyaline Cast (Auto) 5-10 H (0-5) /lpf U Epithel Cells (Auto) >30 H (0-5) /lpf Urine Bacteria (Auto) Negative (Negative) COVID-19 Eval Order Covid19 at [facility] SARS-CoV-2 (PCR) NEGATIVE (Negative) Imaging Data Attestation: I personally reviewed and interpreted this imaging study as follows: Radiologist's Impression: Chest X-Ray 10/05/20 06:20 SINGLE VIEW CHEST CLINICAL HISTORY: Atypical chest pain. FINDINGS: An AP, portable, upright chest radiograph is compared to study dated 09/18/2020. The heart is enlarged. The pulmonary vasculature is noncongested. There is mild elevation of the right hemidiaphragm and bibasilar atelectasis. No airspace consolidation or large pleural effusion is identified. No pneumothorax is seen. The bony thorax is grossly intact. IMPRESSION: Cardiomegaly with no acute cardiopulmonary abnormality. ACT 112: Negative or not required by law. Electronically signed by: Garrett Kelly M.D. 10/05/2020 7:06 AM Venous Doppler Study 10/05/20 07:53 ULTRASOUND BILATERAL LOWER EXTREMITY VENOUS CLINICAL HISTORY: Elevated d-dimer. Dyspnea. History of left leg swelling. COMPARISON STUDY: No priors. TECHNIQUE: Real-time, grayscale, and color Doppler sonography of the deep veins of the right and left lower extremity was performed from the inguinal crease to the calf. Compression and augmentation were utilized. FINDINGS: There is no sonographic evidence of deep venous thrombosis identified in the right or left lower extremity. The common femoral, superficial femoral, and popliteal veins are patent and normally compressible bilaterally. The greater saphenous vein and the profunda femoris vein at the junction with the common femoral vein are clear in both legs. The visualized calf veins are patent bilaterally. IMPRESSION: There is no sonographic evidence of deep venous thrombosis identified in the right or left lower extremity. ACT 112: Negative or not required by law. Electronically signed by: Garrett Kelly M.D. 10/05/2020 8:54 AM ECG Data Attestation: I personally reviewed and interpreted this ECG as follows: Indication: + chest pain Rate (beats per minute): 87 Rhythm: + normal sinus ECG ST segments: + T-wave inversions ECG Findings: no PVCs Comparison ECG Date: from (09/19/2020) Change: the following changes noted (T wave inversions appear more pronounced today in the lateral leads) Additional Comments: Repeat twelve-lead EKG performed at 745 per my interpretation shows normal sinus rhythm at a rate of 80 bpm. Persistent T wave inversions in the high lateral leads and biphasic T waves in the lateral leads. Slight J-point elevation in the precordial leads. No PVCs. MDM Narrative I did evaluate the patient as noted above. He is presenting with chest pain. He had a nondiagnostic stress test recently and his echocardiogram showed a smal l pericardial effusion. His symptoms are concerning for possible pericarditis versus coronary artery disease. IV access was established. I did place an order for continuous cardiac monitoring. The monitor showed normal sinus rhythm at a rate of 80 bpm. I did order and personally review the patient's 12-lead EKG as described above. He has T wave inversions in the lateral and high lateral leads with some J-point elevation in the precordial leads. Repeat twelve-lead EKG demonstrates similar findings as noted above. I did order and personally reviewed the images of the patient's chest x-ray as described above. He has no acute process within the chest. I did order a urine analysis. I did order and review the patient's blood work as noted in the electronic medical record. His white count is elevated at 19,000. CRP is also elevated. Hemoglobin is 13. Platelet count is 570. D-dimer is elevated at 13,000. Electrolytes show a sodium 134. Renal function is impaired at 2.8. This is above his baseline of 1.4. Troponin is also elevated at 0.056. Lipase is 421. His symptoms seem consistent with either ACS or pericarditis. I did not feel PE was very likely. His D-dimer may be simply elevated from pericarditis. We are unable to get a CT angiogram due to his elevated creatinine and so we did order Dopplers of his lower extremities which show no evidence of DVT. He will be hospitalized for further care and evaluation and possible VQ scan if felt indicated by the inpatient staff. He is not currently having any chest discomfort. His test results were discussed with him. Resident Physician Supervision Note: I did perform an independent evaluation and examination of this patient as described. I also saw this patient in conjunction with the resident, , and guided management for the patient. Impression & Plan Acute kidney injury, Chest pain, D-dimer, elevated, Elevated troponin Discharge Plan Visit Data Chief Complaint: Cardiac Assessment Stated Complaint: PAIN LEFT CHEST WHEN BREATHING ED Provider: Rocael Crawford ED Midlevel Provider: Rocael Rosario Discharge Problem: Acute kidney injury, Chest pain, D-dimer, elevated, Elevated troponin Patient Disposition: Admitted As Inpatient Discharge Instructions Interventions: ED Discharge Assessment Last Done: 10/05/20 11:03
[2020-10-05 07:40] LABS: C Reactive Protein 12.8 mg/dl (0-0.29); Magnesium 2.2 mg/dl (1.8-2.4)
[2020-10-05 07:41] LABS: Albumin Globulin Ratio 0.5 (0.9-2); Bilirubin,Total 0.5 mg/dl (0.2-1); Globulin 5.5 gm/dl (2.5-4.0); Total Protein 8.2 gm/dl (6.4-8.2); Troponin I 0.056 ng/ml (0-0.045)
[2020-10-05 07:52] LABS: D Dimer 13500 ug/L FEU (0-500)
--- NOTE | 2020-10-05 07:55 | Emergency Department Note ---
ED Visit Note This patient was seen in concert with Dr. Crawford and we discussed and agreed upon the history, physical, assessment, and plan. See attending's note for details. . Resident Activity Tracking Resident Involvement: Resident Care Provided Care Provided: Adult ED
[2020-10-05 08:46] LABS: Appearance Urine Clear (Clear); Bacteria Urine Automated Negative (Negative); Bilirubin Urine Negative (Negative); Blood Urine Negative (Negative); Color Urine Yellow; Epithelial Cell Urine Auto >30 /lpf (0-5); Glucose Urine UA Negative (Negative); Ketones Urine Negative (Negative); Leukocyte Esterase Urine Negative (Negative); Nitrite Urine Negative (Negative); Protein Urine 1+ (Negative); RBC Urine Automated 0-4 /hpf (0-4); Specific Gravity Urine 1.014 (1.000-1.030); Urobilinogen Urine Negative (Negative)
--- NOTE | 2020-10-05 08:56 | Ultrasound Report ---
ULTRASOUND BILATERAL LOWER EXTREMITY VENOUS CLINICAL HISTORY: Elevated d-dimer. Dyspnea. History of left leg swelling. COMPARISON STUDY: No priors. TECHNIQUE: Real-time, grayscale, and color Doppler sonography of the deep veins of the right and left lower extremity was performed from the inguinal crease to the calf. Compression and augmentation wer e utilized. FINDINGS: There is no sonographic evidence of deep venous thrombosis identified in the right or left lower extremity. The common femoral, superficial femoral, and popliteal veins are patent and normally compressible bilaterally. The greater saphenous vein and the profunda femoris vein at the junction w ith the common femoral vein are clear in both legs. The visualized calf veins are patent bilaterally. IMPRESSION: There is no sonographic evidence of deep venous thrombosis identified in the right or lef t lower extremity. ACT 112: Negative or not required by law. Electronically signed by: Garrett Kelly M.D. 10/05/2020 8:54 AM
--- NOTE | 2020-10-05 09:58 | History & Physical Report ---
Date of Service October 05, 2020 Assessment & Plan (1) Chest pain: Plan: Attending: Dr. Delgadillo Patient previously admitted and had partial work-up for ACS. Echocardiogram showed no regional wall motion abnormalities. However, patient was unable to complete stress echo secondary to hypertension. Patient does not have significant elevation of troponin at this time as it is 0.05. Repeat troponin ordered EKG shows some ST abnormalities but no specific indication of AMI Differential diagnosis includes pericarditis, ACS, PE, esophageal reflux At this time heparin drip has been initiated prophylactically Cardiology has been consulted Consider repeat echocardiogram Follow serial troponins Follow serial EKGs (2) Acute renal failure: Plan: Most likely iatrogenic to start of Aldactone Patient was on HCTZ/Aldactone 25/25 mg p.o. daily We will hold Aldactone and just give hydrochlorothiazide Hydrate with IV fluids with normal saline solution with 20 mEq of potassium chloride per liter at 125 mL/h Follow serial labs (3) HLD (hyperlipidemia): Plan: Patient resistant to take a statin We will continue outpatient management at this time (4) HTN (hypertension): Plan: Home medications include HCTZ/Aldactone 25/25 mg p.o. daily Hold Aldactone and just give hydrochlorothiazide 25 mg p.o. daily Currently systolic pressure is in the low 100s Continue to monitor for need for second agent (5) Obesity: Plan: 134 kg BMI 42.4 kg/m Discussed need for weight loss Will continue work on this as an outpatient (6) D-dimer, elevated: Plan: D-dimer 13,500 ESR 110 CRP elevated 12.8 Unable to do a CTA of the chest secondary to acute kidney failure Empirically treating with heparin drip Unclear if this is autoimmune Continue cardiac work-up for now (7) DVT prophylaxis: Plan: Started heparin drip prophylactically Elevated D-dimer Lower extremity duplex is negative for DVT History of Present Illness Chief Complaint: Chest pain Primary Care Provider: Liya Ames Attending: Dr. Delgadillo This is a 55-year-old male with a history of obesity, previous chest pain, hyperlipidemia, hypertension, and smokeless tobacco abuse. The patient was recently admitted to [facility] for chest pain from 09/18/2020 and discharged on 09/19/2020. During that. He had no arrhythmias. He did have an exercise stress echocardiogram which was prematurely terminated secondary to hypertension. Patient was felt at that time to possibly have some pericarditis of unknown etiology. The patient was discharged on spironolactone/hydrochlorothiazide 25/25 mg as well as amlodipine 5 mg tablets. He was continued on aspirin 81 mg as well as ascorbic acid. He is on no other outpatient medications. Patient presents today with chest pain since last night. Troponin 0 0.05. There is some T wave inversion in aVL. Otherwise EKG looks similar to previous admission. Patient states that the time of my examination the pain is resolved. He has a white blood count of 19,000 but denies any fever, chills, sweats, rigors. He has no hematuria. He denies any other signs or symptoms of infection. The patient does report that his chest pain last night radiated into his right shoulder and right arm. He has no new or unusual back pain. The patient works for [employer]. He has not been vaccinated. He reports he has had a minimal cough but no other signs or symptoms of Covid and no exposure to Covid positive vectors. The patient does not smoke cigarettes but he does use smokeless tobacco and goes for approximately 1 can/week. He has been intentionally trying to cut back on nicotine use. He will continue to work on tobacco abstention. Patient is morbidly obese with a weight of 134 kg and a BMI of 42.4 kg/m. He states that his weight has been stable. No significant increase or loss of weight. Patient denies any loss of appetite. No excessive thirst. Patient does have an elevated creatinine this admission. Baseline is 1.4. Current admission his creatinine is 2.81 mg/Ciara. I suspect this is from the Aldactone that the patient was started on last admission. Patient has no other acute complaints. Allergies Allergy/AdvReac Type Severity Reaction Status Date / Time No Known Allergies Allergy Unverified 10/05/20 07:49 Home Medications Medication Instructions Recorded Confirmed Type ascorbic acid (vitamin C) 500 mg 500 mg PO QAM 09/18/20 10/05/20 History tablet (Vitamin C) aspirin 81 mg tablet,delayed 162 mg PO QAM 09/18/20 10/05/20 History release (Aspirin Low Dose) amlodipine 5 mg tablet (Norvasc) 5 mg PO QAM 10/05/20 10/05/20 History spironolactone 25 1 tab PO QAM 10/05/20 10/05/20 History mg-hydrochlorothiazide 25 mg tablet (Aldactazide) Past Med/Surg History Medical History HLD (hyperlipidemia) HTN (hypertension) Surgical History No pertinent past surgical history S/P repair of hydrocele Family History Other CHF (congestive heart failure) Cardiomyopathy Heart disease Hypertension Myocardial infarction Social History Smoking Status: Never smoker Tobacco Type: Smokeless Tobacco (Dip or Chew) Second Hand Exposure: No; Do You Dip or Chew Tobacco: Yes; Tobacco Cessation Education Requested by Patient: No Hx Alcohol Use: Yes Alcohol type: beer Alcohol Intake Frequency: Monthly or Less Hx Substance Use: No Preferred Language: Kittitian Communication Ability: Effective Motorcyles Final Inspector Required: No Beliefs That Will Affect Care: None marital status: Current Living Situation: Spouse Current Living Situation Comment: [place] (story and 02/24) current occupational status: employed current occupation: [employer] Other Information That Helps Us Care for You: No Feels Safe at Home: Yes Safety Concerns: Feels Safe At This Time Assistive Devices: Glasses Review of Systems Review of Systems: All systems reviewed & are unremarkable except as noted in Subjective Physical Exam Physical Exam: GENERAL : No acute distress EYES: No icterus, gaze conjugate NOSE: No evidence of epistaxis MOUTH: No lesions or candidiasis NECK: Supple LUNGS: CTA B/L, no wheezes, rales or rhonchi HEART: Regular, rate controlled ABDOMEN: Soft, NT, ND, BS Present. Midepigastric pain with palpation. No guarding. EXTREMITIES: No LE edema, pedal pulses intact and equal bilaterally. Evidence of chronic venous stasis bilateral lower extremities NEURO: A&OX3 Results & Data Results & Data ([facility]) Vital Signs (Past 12 Hours) Vital Signs Temp Pulse Resp BP Pulse Ox 10/05/20 08:00 79 21 102/50 L 94 10/05/20 07:30 83 21 134/84 95 10/05/20 07:00 85 20 129/74 94 10/05/20 06:30 85 21 129/71 93 10/05/20 06:18 87 30 H 133/71 94 10/05/20 06:09 36.9 C 91 H 20 118/73 93 Laboratory Results 10/05/20 06:25 10/05/20 06:25 10/05/20 06:25 Troponin I 0.056 H* Diagnostic Findings SINGLE VIEW CHEST CLINICAL HISTORY: Atypical chest pain. FINDINGS: An AP, portable, upright chest radiograph is compared to study dated 09/18/2020. The heart is enlarged. The pulmonary vasculature is noncongested. There is mild elevation of the right hemidiaphragm and bibasilar atelectasis. No airspace consolidation or large pleural effusion is identified. No pneumothorax is seen. The bony thorax is grossly intact. IMPRESSION: Cardiomegaly with no acute cardiopulmonary abnormality. ACT 112: Negative or not required by law. Electronically signed by: Garrett Kelly M.D. 10/05/2020 7:06 AM ULTRASOUND BILATERAL LOWER EXTREMITY VENOUS CLINICAL HISTORY: Elevated d-dimer. Dyspnea. History of left leg swelling. COMPARISON STUDY: No priors. TECHNIQUE: Real-time, grayscale, and color Doppler sonography of the deep veins of the right and left lower extremity was performed from the inguinal crease to the calf. Compression and augmentation were utilized. FINDINGS: There is no sonographic evidence of deep venous thrombosis identified in the right or left lower extremity. The common femoral, superficial femoral, and popliteal veins are patent and normally compressible bilaterally. The greater saphenous vein and the profunda femoris vein at the junction with the common femoral vein are clear in both legs. The visualized calf veins are patent bilaterally. IMPRESSION: There is no sonographic evidence of deep venous thrombosis identified in the right or left lower extremity. ACT 112: Negative or not required by law. Electronically signed by: Garrett Kelly M.D. 10/05/2020 8:54 AM Code Status & VTE Plan Code Status Full resuscitation: Level I Supervising Physician Co-Signing Physician Notes Patient was seen and examined independently I discussed the case with Garrett LEA I reviewed pertinent past medical social family history and also the plan of care and agree with the plan of care. Patient returns with pleuritic positional chest pain and is extremely elevated inflammatory markers. However during his last admission he has had accelerated hypertension and was instituted on spironolactone hydrochlorothiazide and he presents with acute kidney injury with a creatinine of 2.8. His prohibits pursuing interventional dye studies. He did have a Doppler of his leg without DVT he does not have signs or symptoms consistent with pulmonary embolism, his Wells criteria is near 0. With regard to his renal dysfunction he has no active sediment to consider this to be a glomerulonephritis. There is hyaline casts present therefore considering ATN is most reasonable diagnosis for his kidney dysfunction. With his markedly elevated inflammatory markers he has no pulmonary symptoms and Covid testing was negative We will consider treating for pericarditis however have to avoid NSAIDs because of his renal dysfunction. Discussions with pharmacy for dosing of colchicine is underway Physical examination the patient shows no cardiac rub he does have reproducible pleuritic pain when sitting up his lungs are clear his abdomen is normal active bowel sounds he is obese however there is no bruits. Tremors are with trace edema some venous stasis changes but no evidence of cords Any exceptions will be noted below PG Care Time/CCT Total # of Minutes Spent Total Time Spent with Patient: Total time spent is greater than 50% in coordination of care (as documented) at patient's floor/unit and/or counseling patient: 60 minutes Coding Level of Care Code 06847 Initial Inpt Care Lvl 3 Diagnoses Chest pain R07.9 Chest pain type: unspecified Acute renal failure N17.9 HLD (hyperlipidemia) E78.5 HTN (hypertension) I10 Obesity E66.9 DVT prophylaxis Z29.9 D-dimer, elevated R79.89 Time Spent (min) 60 (1) Chest pain Chest pain type: unspecified Qualified Code(s): R07.9 - Chest pain, unspecified
[2020-10-05] MEDS ORDERED: Heparin IV Adult Wt-Based Standard *NO* Bolus Protocol ONE (10:09)
[2020-10-05] MEDS: PANTOprazole 40 MG TAB PO SCH (10:52)
[2020-10-05] MEDS: HEPARIN SODIUM/DEXTROSE 25,000 UNITS/500 ML BAG IV SCH (10:52)
[2020-10-05] MEDS ORDERED: ACETAMINOPHEN 325 MG TAB PO PRN (11:47)
[2020-10-05] MEDS ORDERED: MoRPHine SULFATE 2 MG/ML CARP IV PRN (11:47)
[2020-10-05] MEDS: SODIUM CHLORIDE 0.9% 1000ML 1,000 ML IV SCH ×2 (12:43→20:07)
--- NOTE | 2020-10-05 14:06 | Cardiology Consultation ---
Date of Consultation October 05, 2020 Assessment & Plan (1) Chest pain: His chest pain is very atypical for an acute coronary syndrome. The episodes themselves are very brief in duration. Actually fleeting in nature. Some radiation to the right upper chest. Associated with deep inspiration and some movement. Not reproducible on examination. Not exertional in nature. During his last admission he was felt to have an element of pericarditis which would be a plausible explanation. Do not believe he requires any additional ischemic evaluation. (2) Pericardial effusion: Repeat echocardiography today reveals a very small pericardial effusion. Difficult to say whether there has been any change from his study performed 2 weeks ago. Colchicine could be added to his medical regimen at 0.6 mg twice daily. A repeat echocardiogram in 1 month to gauge resolution would seem reasonable. History of Present Illness Reason for Consultation: Chest pain Requesting Physician: Shima Attending Physician: Rocael Delgadillo MD History of Present Illness The patient is a 55-year-old gentleman without a known history of cardiac disease who is admitted for symptoms of chest pain. The patient was admitted approximately 2 weeks ago for similar symptoms. At that time he reported some fleeting substernal chest pains with radiated to the left portion of his chest. He was evaluated with exercise stress echo and eventually discharged when his symptoms were not felt to be related to an acute coronary syndrome. He was in fact treated for possible pericarditis. Patient states that his symptoms essentially resolved until last night when he was awoken early in the morning with similar symptoms. He describes this as a fleeting sensation in the central chest which radiates to the right side. The symptoms are generally associated with changes in position and deep breathing. They are sharp in nature. They are very fleeting lasting only a few seconds. Exertion does not seem to produce the symptoms. He states the symptoms are similar to what he experienced a couple of weeks ago except that the pain shoots to the right-sided stent of the left side. He works for the [employer]. He does some walking at work. He does not do more vigorous exercise does not appear to have exertional symptoms. He does not recall any symptoms associated with his exercise testing and that did not appear to reproduce his current symptoms. Otherwise, he claims to have been feeling well. He did not report constitutional symptoms such as fevers or chills, increasing fatigue, change in bowel or bladder habits or difficulty eating. No lower extremity edema. No myalgias. No current symptoms of chest pain. Allergies Allergy/AdvReac Type Severity Reaction Status Date / Time No Known Allergies Allergy Unverified 10/05/20 07:49 Home Medications Medication Instructions Recorded Confirmed Type ascorbic acid (vitamin C) 500 mg 500 mg PO QAM 09/18/20 10/05/20 History tablet (Vitamin C) aspirin 81 mg tablet,delayed 162 mg PO QAM 09/18/20 10/05/20 History release (Aspirin Low Dose) amlodipine 5 mg tablet (Norvasc) 5 mg PO QAM 10/05/20 10/05/20 History spironolactone 25 1 tab PO QAM 10/05/20 10/05/20 History mg-hydrochlorothiazide 25 mg tablet (Aldactazide) Patient History Medical History HLD (hyperlipidemia) HTN (hypertension) Surgical History No pertinent past surgical history S/P repair of hydrocele Family History Other CHF (congestive heart failure) Cardiomyopathy Heart disease Hypertension Myocardial infarction Social History Smoking Status: Never smoker Tobacco Type: Smokeless Tobacco (Dip or Chew) Second Hand Exposure: No; Do You Dip or Chew Tobacco: Yes; Tobacco Cessation Education Requested by Patient: No Hx Alcohol Use: Yes Alcohol type: beer Alcohol Intake Frequency: Monthly or Less Hx Substance Use: No Preferred Language: Cuban Communication Ability: Effective Music Therapy Specialist Required: No Beliefs That Will Affect Care: None marital status: Current Living Situation: Spouse Current Living Situation Comment: [place] (story and 02/24) current occupational status: employed current occupation: [employer] Other Information That Helps Us Care for You: No Feels Safe at Home: Yes Safety Concerns: Feels Safe At This Time Assistive Devices: Glasses Review of Systems Review of Systems: All systems reviewed & are unremarkable except as noted in HPI & below Per HPI Physical Exam Physical Exam: The patient is alert and oriented. Mood and affect appeared normal. He answered all questions appropriately. Morbidly obese HEENT: Pupils are equal and reactive to light and accommodation. Extraocular movements are intact. The sclerae are anicteric. Neuro: Cranial nerves intact Neck: Thick neck Lungs: Clear to auscultation bilaterally. He has good air movement without use of accessory muscles. No rales wheezes or rhonchi. Cardiac: Heart demonstrates a regular rate and rhythm. Normal S1 and S2. No murmurs on examination. Pulses: The patient has palpable radial pulses bilaterally that are equal in intensity Extremities: There was no evidence of hypoperfusion. There is no cyanosis or clubbing. There is no edema. Skin: I did not appreciate any rashes on examination today. Results & Data ([facility]) Vital Signs (Past 12 Hours) Vital Signs Temp Pulse Pulse Resp BP BP Pulse Ox 10/05/20 12:52 80 10/05/20 11:51 36.9 C 77 20 124/71 94 10/05/20 11:47 10/05/20 11:03 78 18 143/81 H 95 10/05/20 10:01 79 23 150/92 H 10/05/20 09:30 80 133/75 10/05/20 08:00 79 21 102/50 L 94 10/05/20 07:30 83 21 134/84 95 10/05/20 07:00 85 20 129/74 94 10/05/20 06:30 85 21 129/71 93 10/05/20 06:18 87 30 H 133/71 94 10/05/20 06:09 36.9 C 91 H 20 118/73 93 Pulse Ox 10/05/20 12:52 10/05/20 11:51 10/05/20 11:47 93 10/05/20 11:03 10/05/20 10:01 10/05/20 09:30 10/05/20 08:00 10/05/20 07:30 10/05/20 07:00 10/05/20 06:30 10/05/20 06:18 10/05/20 06:09 Laboratory Results Abnormal Lab Results 10/05/20 10/05/20 10/05/20 06:25 06:25 06:25 WBC 19.46 H RBC 4.16 L Hgb 13.1 L Hct 38.5 L MCV 92.5 MCH 31.5 MCHC 34.0 RDW Std Deviation 46.5 H RDW Coeff of Andrew 13.8 Plt Count 570 H MPV 10.3 Immature Gran % (Auto) 0.4 Neut % (Auto) 79.3 Lymph % (Auto) 7.1 [place] % (Auto) 12.6 Eos % (Auto) 0.4 Baso % (Auto) 0.2 Neut # (Auto) 15.45 H Lymph # (Auto) 1.38 [place] # (Auto) 2.45 H Eos # (Auto) 0.08 Baso # (Auto) 0.03 Immature Gran # (Auto) 0.07 H ESR APTT 32.8 H PTT Ratio 1.2 D-Dimer 82814 H* Sodium 134 L Potassium 4.1 Chloride 105 Carbon Dioxide 21 Anion Gap 8.0 BUN 67 H Creatinine 2.81 H Est Cr Clr Drug Dosing 41.7 Est GFR ( Amer) 28.4 Est GFR (Non-Af Amer) 24.5 BUN/Creatinine Ratio 23.8 H Glucose 131 H Lactate Calcium 9.3 Magnesium Total Bilirubin 0.5 AST 40 H ALT 120 H Alkaline Phosphatase 138 H Troponin I 0.056 H* C-Reactive Protein Total Protein 8.2 Albumin 2.7 L Globulin 5.5 H Albumin/Globulin Ratio 0.5 L Lipase 421 H Urine Color Urine Appearance Urine pH Ur Specific [place] Urine Protein Urine Glucose (UA) Urine Ketones Urine Blood Urine Nitrite Urine Bilirubin Urine Urobilinogen Ur Leukocyte Esterase Urine WBC (Auto) Urine RBC (Auto) U Hyaline Cast (Auto) U Epithel Cells (Auto) Urine Bacteria (Auto) COVID-19 Eval Order SARS-CoV-2 (PCR) 10/05/20 10/05/20 10/05/20 06:25 06:25 07:17 WBC RBC Hgb Hct MCV MCH MCHC RDW Std Deviation RDW Coeff of Andrew Plt Count MPV Immature Gran % (Auto) Neut % (Auto) Lymph % (Auto) [place] % (Auto) Eos % (Auto) Baso % (Auto) Neut # (Auto) Lymph # (Auto) [place] # (Auto) Eos # (Auto) Baso # (Auto) Immature Gran # (Auto) ESR 110 H APTT PTT Ratio D-Dimer Sodium Potassium Chloride Carbon Dioxide Anion Gap BUN Creatinine Est Cr Clr Drug Dosing Est GFR ( Amer) Est GFR (Non-Af Amer) BUN/Creatinine Ratio Glucose Lactate 0.7 Calcium Magnesium 2.2 Total Bilirubin AST ALT Alkaline Phosphatase Troponin I C-Reactive Protein 12.80 H Total Protein Albumin Globulin Albumin/Globulin Ratio Lipase Urine Color Urine Appearance Urine pH Ur Specific [place] Urine Protein Urine Glucose (UA) Urine Ketones Urine Blood Urine Nitrite Urine Bilirubin Urine Urobilinogen Ur Leukocyte Esterase Urine WBC (Auto) Urine RBC (Auto) U Hyaline Cast (Auto) U Epithel Cells (Auto) Urine Bacteria (Auto) COVID-19 Eval Order SARS-CoV-2 (PCR) 10/05/20 10/05/20 10/05/20 08:02 08:02 08:14 WBC RBC Hgb Hct MCV MCH MCHC RDW Std Deviation RDW Coeff of Andrew Plt Count MPV Immature Gran % (Auto) Neut % (Auto) Lymph % (Auto) [place] % (Auto) Eos % (Auto) Baso % (Auto) Neut # (Auto) Lymph # (Auto) [place] # (Auto) Eos # (Auto) Baso # (Auto) Immature Gran # (Auto) ESR APTT PTT Ratio D-Dimer Sodium Potassium Chloride Carbon Dioxide Anion Gap BUN Creatinine Est Cr Clr Drug Dosing Est GFR ( Amer) Est GFR (Non-Af Amer) BUN/Creatinine Ratio Glucose Lactate Calcium Magnesium Total Bilirubin AST ALT Alkaline Phosphatase Troponin I C-Reactive Protein Total Protein Albumin Globulin Albumin/Globulin Ratio Lipase Urine Color Yellow Urine Appearance Clear Urine pH 5.0 Ur Specific [place] 1.014 Urine Protein 1+ H Urine Glucose (UA) Negative Urine Ketones Negative Urine Blood Negative Urine Nitrite Negative Urine Bilirubin Negative Urine Urobilinogen Negative Ur Leukocyte Esterase Negative Urine WBC (Auto) 1-5 Urine RBC (Auto) 0-4 U Hyaline Cast (Auto) 5-10 H U Epithel Cells (Auto) >30 H Urine Bacteria (Auto) Negative COVID-19 Eval Order Covid19 at [facility] SARS-CoV-2 (PCR) NEGATIVE 10/05/20 10:51 WBC RBC Hgb Hct MCV MCH MCHC RDW Std Deviation RDW Coeff of Andrew Plt Count MPV Immature Gran % (Auto) Neut % (Auto) Lymph % (Auto) [place] % (Auto) Eos % (Auto) Baso % (Auto) Neut # (Auto) Lymph # (Auto) [place] # (Auto) Eos # (Auto) Baso # (Auto) Immature Gran # (Auto) ESR APTT PTT Ratio D-Dimer Sodium Potassium Chloride Carbon Dioxide Anion Gap BUN Creatinine Est Cr Clr Drug Dosing Est GFR ( Amer) Est GFR (Non-Af Amer) BUN/Creatinine Ratio Glucose Lactate Calcium Magnesium Total Bilirubin AST ALT Alkaline Phosphatase Troponin I 0.035 C-Reactive Protein Total Protein Albumin Globulin Albumin/Globulin Ratio Lipase Urine Color Urine Appearance Urine pH Ur Specific [place] Urine Protein Urine Glucose (UA) Urine Ketones Urine Blood Urine Nitrite Urine Bilirubin Urine Urobilinogen Ur Leukocyte Esterase Urine WBC (Auto) Urine RBC (Auto) U Hyaline Cast (Auto) U Epithel Cells (Auto) Urine Bacteria (Auto) COVID-19 Eval Order SARS-CoV-2 (PCR) Diagnostic Findings Stress echocardiogram performed 09/11/2020: Patient exercised for 5 minutes achieving 69% of his maximum predicted heart rate. Exercise discontinued due to marked hypertension. There is no evidence of inducible ischemia. Mild aortic regurgitation. Mild mitral regurgitation. Small circumferential pericardial effusion. PG Care Time/CCT Total # of Minutes Spent Total Time Spent with Patient: Total time spent is greater than 50% in coordination of care (as documented) at patient's floor/unit and/or counseling patient: Coding Level of Care Code 96815 Office/OBS Consult Lvl 4 Diagnoses Chest pain R07.9 Chest pain type: unspecified Pericardial effusion I31.3 (1) Chest pain Chest pain type: unspecified Qualified Code(s): R07.9 - Chest pain, unspecified
--- NOTE | 2020-10-05 16:40 | XCELERA ---
[id number]
--- NOTE | 2020-10-05 17:38 | Electrocardiogram Report ---
Test Reason : Blood Pressure : / mmHG Vent. Rate : 087 BPM Atrial Rate : 087 BPM P-R Int : 180 ms QRS Dur : 086 ms QT Int : 342 ms P-R-T Axes : 050 -04 098 degrees QTc Int : 411 ms Normal sinus rhythm Possible Left atrial enlargement Left ventricular hypertrophy Abnormal ECG When compared with ECG of 19-SEP-2020 05:36, ST no longer elevated in Anterior leads T wave inversion more evident in Lateral leads QT has shortened Changes consistent with evolvinig pericarditis Confirmed by Otto Lr ([id number]) on 10/05/2020 5:38:24 PM Referred By: ED Confirmed By:Gian Lr
--- NOTE | 2020-10-05 17:42 | Electrocardiogram Report ---
Test Reason : Blood Pressure : / mmHG Vent. Rate : 080 BPM Atrial Rate : 080 BPM P-R Int : 182 ms QRS Dur : 088 ms QT Int : 386 ms P-R-T Axes : 039 -08 096 degrees QTc Int : 445 ms Normal sinus rhythm Possible Left atrial enlargement Left ventricular hypertrophy Abnormal ECG When compared with ECG of 05-OCT-2020 06:17, (unconfirmed) No significant change was found Confirmed by Otto Lr ([id number]) on 10/05/2020 5:42:19 PM Referred By: REFERRED SELF Confirmed By:Gian Lr
[2020-10-05 18:51] LABS: Partial Thromboplastin Ratio 1.4; Partial Thromboplastin Time 36.5 Seconds (21.0-31.0)
[2020-10-05] MEDS ORDERED: COLCHICINE 0.6 MG TAB PO SCH (19:00)
[2020-10-05] MEDS ORDERED: HEPARIN SOD (PORCINE) 1000 UNIT/ML IV STA (19:21)
[2020-10-05] MEDS: predniSONE 20 MG TAB PO SCH (20:06)
[2020-10-06] MEDS: HEPARIN SODIUM/DEXTROSE 25,000 UNITS/500 ML BAG IV SCH ×4 (01:21→15:50)
[2020-10-06 01:50] LABS: Partial Thromboplastin Ratio 1.5; Partial Thromboplastin Time 40.2 Seconds (21.0-31.0)
[2020-10-06] MEDS: SODIUM CHLORIDE 0.9% 1000ML 1,000 ML IV SCH ×3 (05:01→20:47)
[2020-10-06] MEDS: ASPIRIN 81 MG ECTAB PO SCH (07:59)
[2020-10-06] MEDS: ASCORBIC ACID 500 MG TAB PO SCH (07:59)
[2020-10-06] MEDS: amLODIPine BESYLATE 5 MG TAB PO SCH (07:59)
[2020-10-06] MEDS: PANTOprazole 40 MG TAB PO SCH (07:59)
[2020-10-06 08:20] LABS: Hematocrit (blood only) 37.5 % (42-52); Hemoglobin 12.5 g/dL (14.0-18.0); Mean Corpuscular Hemoglobin 31.1 pg (25-34); Mean Corpuscular Hgb Conc 33.3 g/dL (32-36); Mean Corpuscular Volume 93.3 fL (80-100); Mean Platelet Volume 10.3 fL (7.4-10.4); Platelet Count 529 K/uL (130-400); RDW Coefficient of Variation 13.7 % (11.5-14.5); RDW Standard Deviation 47.2 fL (36.4-46.3); Red Blood Count 4.02 M/uL (4.7-6.1); White Blood Count 11.54 K/uL (4.8-10.8)
[2020-10-06 08:41] LABS: BUN Creatinine Ratio 26.6 (10-20); Creatinine Clr Calc Pharmacy 69.6 ml/min; Est GFR (African American) 52.6 ml/min; Est GFR (Non-African American) 45.4 ml/min; Magnesium 2.2 mg/dl (1.8-2.4)
--- NOTE | 2020-10-06 08:45 | Hospitalist Progress Note ---
Date of Service October 06, 2020 Assessment & Plan (1) Chest pain: Plan: Patient previously admitted and had Echocardiogram showed no regional wall motion abnormalities. However, patient was unable to complete stress echo secondary to hypertension. EKG shows some ST abnormalities but no specific indication of AMI Cardiology is considering Pericarditis, and did not recommend further evaluation for ischemic issues given atypical nature of pain echocardiogram shows no regional wall motion abnormalities persist with mild pericardial effusion Serial troponins 0.05->0.03 For possible pericarditis, started cautiously on renal dose adjusted colchicine, and glucocorticoids due to acute kidney injury as acute kidney injury does improve may consider stopping glucocorticoids in favor of nonsteroidalstherapy seems to be improving his symptoms Given markedly elevated D-dimer we will pursue CT angiogram if his renal function permits (2) Acute renal failure: Plan: likely atn from pre renal could be combination of diuretics and decreased po intake Hydrate with IV fluids Follow serial labs (3) HLD (hyperlipidemia): Plan: Patient resistant to take a statin We will continue outpatient management at this time (4) HTN (hypertension): Plan: great improvement in previous elevated bp, will continue amlodipine (5) Obesity: Plan: 134 kg BMI 42.4 kg/m Discussed need for weight loss Will continue work on this as an outpatient (6) D-dimer, elevated: Plan: D-dimer 13,500 ESR 110 CRP elevated 12.8 Unable to do a CTA of the chest secondary to acute kidney failure Empirically treating with heparin drip, if renal function does improve will have CTA, if not will consider V/Q scan, but will not be able to have one till thursday (7) DVT prophylaxis: Plan: Started heparin drip prophylactically Elevated D-dimer Lower extremity duplex is negative for DVT Admission and Anticipated Discharge Date Admission Date: October 05, 2020 Subjective Patient states he feels much improved this morning his pain is down to 2/10 still pleuritic in nature. He is sitting in the chair without discomfort. He did have an issue of diaphoresis in the middle of the night but none since, remains in sinus rhythm on monitor Review of Systems Review of Systems: Mild distress and fatigue no headache, no visual changes no speech or swallowing issues Pleuritic chest pain, but no pressure or palpitations no shortness of breath at rest mild dyspnea on exertion, no, cough or wheezes no abdominal pain, nausea or vomiting, diarrhea or constipation no dysuria, hematuria or frequency no focal joint pain pre-hospital chronic lower extremity swelling no back pain, CVA tenderness or radicular pain no bruising, bleeding or rashes no focal signs of weakness or numbness or altered sensation no complaints of anxiety or depression.. Physical Exam Physical Exam: The patient appeared well nourished and normally developed. Vital signs as documented. Head exam is normocephalic atraumatic Neck is without JVD, thyromegaly, or carotid bruits. Lungs are clear to auscultation, no focal loss of breath sounds Cardiac exam, Rhythm is regular.. No murmurs, rubs or gallops. Abdominal exam reveals normal bowel sounds, soft non tender, no masses Extremities are trace to 1+ edematous and both pedal pulses are present Neurologic exam is alert and oriented, no focal loss of strength or sensation Skin is with beginning to stasis dermatitis of his lower legs Psychologically is without concerns for anxiety or depression Results & Data Results & Data ([facility]) Vital Signs (Past 12 Hours) Vital Signs Temp Pulse Pulse Resp BP Pulse Ox 10/06/20 04:17 98.4 F 77 20 130/82 93 10/06/20 01:47 73 10/05/20 23:43 97.7 F 79 16 100/67 91 PG Care Time/CCT Total # of Minutes Spent Total Time Spent with Patient: Total time spent is greater than 50% in coordination of care (as documented) at patient's floor/unit and/or counseling patient: Coding Level of Care Code 11576 Subseq Hosp Care Lvl 3 Diagnoses Chest pain R07.9 Chest pain type: unspecified Acute renal failure N17.9 HLD (hyperlipidemia) E78.5 HTN (hypertension) I10 Obesity E66.9 D-dimer, elevated R79.89 DVT prophylaxis Z29.9 (1) Chest pain Chest pain type: unspecified Qualified Code(s): R07.9 - Chest pain, unspecified
[2020-10-06 08:54] LABS: Partial Thromboplastin Ratio 1.7; Partial Thromboplastin Time 44.7 Seconds (21.0-31.0)
[2020-10-06] MEDS ORDERED: ASPIRIN 81 MG ECTAB PO SCH (09:00)
[2020-10-06] MEDS ORDERED: SPIRONOLACTONE/HCTZ 25-25 PO SCH (09:00)
[2020-10-06] MEDS ORDERED: hydroCHLOROthiazide 25 MG TAB PO SCH (09:00)
--- NOTE | 2020-10-06 11:57 | Electrocardiogram Report ---
Test Reason : Blood Pressure : / mmHG Vent. Rate : 077 BPM Atrial Rate : 077 BPM P-R Int : 194 ms QRS Dur : 100 ms QT Int : 406 ms P-R-T Axes : 042 -10 097 degrees QTc Int : 459 ms Normal sinus rhythm Left ventricular hypertrophy with repolarization abnormality Abnormal ECG When compared with ECG of 05-OCT-2020 07:45, No significant change was found Confirmed by Frank Aguirre ([id number]) on 10/06/2020 11:57:19 AM Referred By: REFERRED SELF Confirmed By:Frank Aguirre
[2020-10-06 15:36] LABS: Partial Thromboplastin Ratio 1.6; Partial Thromboplastin Time 43.1 Seconds (21.0-31.0)
[2020-10-06] MEDS: predniSONE 20 MG TAB PO SCH (19:58)
[2020-10-06] MEDS: COLCHICINE 0.6 MG TAB PO SCH (19:59)
[2020-10-06 22:56] LABS: Partial Thromboplastin Ratio 1.6; Partial Thromboplastin Time 42.8 Seconds (21.0-31.0)
[2020-10-07] MEDS: SODIUM CHLORIDE 0.9% 1000ML 1,000 ML IV SCH (05:03)
[2020-10-07 05:42] LABS: Hematocrit (blood only) 38.9 % (42-52); Hemoglobin 12.7 g/dL (14.0-18.0); Mean Corpuscular Hemoglobin 30.8 pg (25-34); Mean Corpuscular Hgb Conc 32.6 g/dL (32-36); Mean Corpuscular Volume 94.2 fL (80-100); Mean Platelet Volume 10.4 fL (7.4-10.4); Platelet Count 513 K/uL (130-400); RDW Coefficient of Variation 13.7 % (11.5-14.5); RDW Standard Deviation 47.2 fL (36.4-46.3); Red Blood Count 4.13 M/uL (4.7-6.1); White Blood Count 9.04 K/uL (4.8-10.8)
[2020-10-07 06:03] LABS: Partial Thromboplastin Ratio 1.8
[2020-10-07 06:12] LABS: BUN Creatinine Ratio 25.5 (10-20); Calcium 8.8 mg/dl (8.5-10.1); Creatinine Clr Calc Pharmacy 76.8 ml/min; Est GFR (African American) 58.8 ml/min; Est GFR (Non-African American) 50.8 ml/min; Potassium 4.5 mmol/L (3.5-5.1)
[2020-10-07 06:16] LABS: Partial Thromboplastin Time 47.8 Seconds (21.0-31.0)
[2020-10-07] MEDS: amLODIPine BESYLATE 5 MG TAB PO SCH (07:43)
[2020-10-07] MEDS: ASCORBIC ACID 500 MG TAB PO SCH (07:43)
[2020-10-07] MEDS: PANTOprazole 40 MG TAB PO SCH (07:44)
[2020-10-07] MEDS: ASPIRIN 81 MG ECTAB PO SCH (07:44)
[2020-10-07] MEDS: COLCHICINE 0.6 MG TAB PO SCH ×3 (07:45→20:16)
--- NOTE | 2020-10-07 09:37 | Electrocardiogram Report ---
Test Reason : Blood Pressure : / mmHG Vent. Rate : 074 BPM Atrial Rate : 074 BPM P-R Int : 190 ms QRS Dur : 094 ms QT Int : 400 ms P-R-T Axes : 051 -11 102 degrees QTc Int : 444 ms Normal sinus rhythm Possible Left atrial enlargement Left ventricular hypertrophy with repolarization abnormality Abnormal ECG When compared with ECG of 06-OCT-2020 05:05, No significant change was found Confirmed by Sid Alaniz ([id number]) on 10/07/2020 9:37:34 AM Referred By: REFERRED SELF Confirmed By:Sid Alaniz
[2020-10-07] MEDS: HEPARIN SODIUM/DEXTROSE 25,000 UNITS/500 ML BAG IV SCH ×4 (11:50→22:44)
--- NOTE | 2020-10-07 14:22 | Hospitalist Progress Note ---
Date of Service October 07, 2020 Assessment & Plan (1) Chest pain: Plan: Patient previously admitted and had a stress test echocardiogram showed no regional wall motion abnormalities. However, patient was unable to complete stress echo secondary to hypertension. EKG shows some ST abnormalities but no specific indication of AMI, particularly discussed lateral T wave inversions seen in the morning of 815 with cardiology they feel this is consistent with most likely pericarditis. Cardiology is not considering unstable angina or ACS, and did not recommend further evaluation for ischemic issues given atypical nature of pain Repeat echocardiogram shows no regional wall motion abnormalities persist with mild pericardial effusion Serial troponins 0.05->0.03 For possible pericarditis, started cautiously on renal dose adjusted colchicine, and glucocorticoids due to acute kidney injury as acute kidney injury does improve may consider stopping glucocorticoids in favor of nonsteroidalstherapy seems to be improving his symptoms Given markedly elevated D-dimer we will pursue CT angiogram if his renal function permits if not we will consider VQ scan. Creatinine on the morning of the was 1.59 will hopefully get more close to 1.4 before considering dye t herapy. Patient is stable on heparin drip at this time (2) Acute renal failure: Plan: likely atn from pre renal could be combination of diuretics and decreased po intake Hydrated with IV fluids with good improvement. Blood pressure gone up slightly fluid feeds were discontinued the morning of 10/07. Follow serial labs (3) HLD (hyperlipidemia): Plan: Patient resistant to take a statin We will continue outpatient management at this time (4) HTN (hypertension): Plan: great improvement in previous elevated bp with amlodipine (5) Obesity: Plan: 134 kg BMI 42.4 kg/m Discussed need for weight loss Will continue work on this as an outpatient (6) D-dimer, elevated: Plan: D-dimer 13,500 ESR 110 CRP elevated 12.8 Unable to do a CTA of the chest secondary to acute kidney failure Empirically treating with heparin drip, if renal function does improve will have CTA, if not will consider V/Q scan, (7) DVT prophylaxis: Plan: Started heparin drip prophylactically Elevated D-dimer Lower extremity duplex is negative for DVT Admission and Anticipated Discharge Date Admission Date: October 05, 2020 Subjective Patient states he feels much improved his pain is down to 0-1 over 10 pleuritic nature is gone away can take inspirations without much distress. He was able to sleep lying down. When I visited him he is sitting in the chair without discomfort. remains in sinus rhythm on monitor Review of Systems Review of Systems: Mild distress and fatigue no headache, no visual changes no speech or swallowing issues Pleuritic chest pain, but no pressure or palpitations no shortness of breath at rest mild dyspnea on exertion, no, cough or wheezes no abdominal pain, nausea or vomiting, diarrhea or constipation no dysuria, hematuria or frequency no focal joint pain pre-hospital chronic lower extremity swelling no back pain, CVA tenderness or radicular pain no bruising, bleeding or rashes no focal signs of weakness or numbness or altered sensation no complaints of anxiety or depression.. Physical Exam Physical Exam: The patient appeared well nourished and normally developed. Vital signs as documented. Head exam is normocephalic atraumatic Neck is without JVD, thyromegaly, or carotid bruits. Lungs are clear to auscultation, no focal loss of breath sounds Cardiac exam, Rhythm is regular.. No murmurs, rubs or gallops. Abdominal exam reveals normal bowel sounds, soft non tender, no masses Extremities are trace to 1+ edematous and both pedal pulses are present Neurologic exam is alert and oriented, no focal loss of strength or sensation Skin is with beginning to stasis dermatitis of his lower legs Psychologically is without concerns for anxiety or depression Results & Data Results & Data ([facility]) Vital Signs (Past 12 Hours) Vital Signs Temp Pulse Pulse Resp BP Pulse Ox Pulse Ox 10/07/20 11:58 98.2 F 95 H 18 160/69 H 96 10/07/20 09:32 98 10/07/20 09:29 75 10/07/20 08:00 98.2 F 78 16 124/85 98 10/07/20 03:34 97.5 F L 77 20 147/91 H 94 PG Care Time/CCT Total # of Minutes Spent Total Time Spent with Patient: Total time spent is greater than 50% in coordination of care (as documented) at patient's floor/unit and/or counseling patient: Coding Level of Care Code 08306 Subseq Hosp Care Lvl 3 Diagnoses Chest pain R07.9 Chest pain type: unspecified Acute renal failure N17.9 HLD (hyperlipidemia) E78.5 HTN (hypertension) I10 Obesity E66.9 D-dimer, elevated R79.89 DVT prophylaxis Z29.9 (1) Chest pain Chest pain type: unspecified Qualified Code(s): R07.9 - Chest pain, unspecified
[2020-10-07] MEDS: predniSONE 20 MG TAB PO SCH (18:32)
[2020-10-07] MEDS: ACYCLOVIR 5% OINT 15 GM TUBE EXT SCH (18:32)
[2020-10-08] MEDS: ACYCLOVIR 5% OINT 15 GM TUBE EXT SCH ×3 (07:00→12:10)
[2020-10-08 07:23] LABS: Hematocrit (blood only) 38.5 % (42-52); Hemoglobin 13.1 g/dL (14.0-18.0); Mean Corpuscular Hemoglobin 31.9 pg (25-34); Mean Corpuscular Volume 93.7 fL (80-100); Mean Platelet Volume 10.2 fL (7.4-10.4); Platelet Count 553 K/uL (130-400); RDW Coefficient of Variation 13.5 % (11.5-14.5); RDW Standard Deviation 46.3 fL (36.4-46.3); Red Blood Count 4.11 M/uL (4.7-6.1); White Blood Count 10.49 K/uL (4.8-10.8)
[2020-10-08 07:42] LABS: Partial Thromboplastin Ratio 2.2
[2020-10-08 07:53] LABS: Partial Thromboplastin Time 57.6 Seconds (21.0-31.0)
[2020-10-08 08:07] LABS: BUN Creatinine Ratio 22.5 (10-20); Calcium 9.1 mg/dl (8.5-10.1); Creatinine Clr Calc Pharmacy 81.5 ml/min; Est GFR (African American) 63.3 ml/min; Est GFR (Non-African American) 54.6 ml/min; Potassium 4.6 mmol/L (3.5-5.1)
[2020-10-08] MEDS: ASPIRIN 81 MG ECTAB PO SCH (08:55)
[2020-10-08] MEDS: COLCHICINE 0.6 MG TAB PO SCH (08:55)
[2020-10-08] MEDS: PANTOprazole 40 MG TAB PO SCH (08:55)
[2020-10-08] MEDS: amLODIPine BESYLATE 5 MG TAB PO SCH (08:55)
[2020-10-08] MEDS: ASCORBIC ACID 500 MG TAB PO SCH (08:55)
[2020-10-08] MEDS: HEPARIN SODIUM/DEXTROSE 25,000 UNITS/500 ML BAG IV SCH (09:02)
--- NOTE | 2020-10-08 12:48 | Nuclear Medicine Report ---
NM pul perfusion CLINICAL HISTORY: Shortness of breath. Positive d-dimer. Assess for DVT. COMPARISON STUDY: Chest 10/05/2020. TECHNIQUE: Immediately following the the intravenous administration of 5.2 mCi of technetium 99 M MAA for the perfusion scan, anterior, oblique, lateral, and posterior views of the chest were obtained. The ventilation scan was not performed due to coronavirus precautions. FINDINGS: Persistent elevation the right hemidiaphragm and enlargement of the cardiac silhouette. Thi s corresponds the chest x-ray findings. Otherwise, no segmental defects identified. The remaining nas g parenchyma perfuses normally. IMPRESSION: No perfusion defects identified. This would be consistent with a very low probability sc an. ACT 112: Negative or not required by law. Electronically signed by: Kwaku Andrade M.D. 10/08/2020 12:46 PM
--- NOTE | 2020-10-08 13:44 | Discharge Summary ---
Date of Service October 08, 2020 Admission HPI Per Admitting Provider Attending: Dr. Delgadillo This is a 55-year-old male with a history of obesity, previous chest pain, hyperlipidemia, hypertension, and smokeless tobacco abuse. The patient was recently admitted to [facility] for chest pain from 09/18/2020 and discharged on 09/19/2020. During that. He had no arrhythmias. He did have an exercise stress echocardiogram which was prematurely terminated secondary to hypertension. Patient was felt at that time to possibly have some pericarditis of unknown etiology. The patient was discharged on spironolactone/hydrochlorothiazide 25/25 mg as well as amlodipine 5 mg tablets. He was continued on aspirin 81 mg as well as ascorbic acid. He is on no other outpatient medications. Patient presents today with chest pain since last night. Troponin 0 0.05. There is some T wave inversion in aVL. Otherwise EKG looks similar to previous admission. Patient states that the time of my examination the pain is resolved. He has a white blood count of 19,000 but denies any fever, chills, sweats, rigors. He has no hematuria. He denies any other signs or symptoms of infection. The patient does report that his chest pain last night radiated into his right shoulder and right arm. He has no new or unusual back pain. The patient works for [employer]. He has not been vaccinated. He reports he has had a minimal cough but no other signs or symptoms of Covid and no exposure to Covid positive vectors. The patient does not smoke cigarettes but he does use smokeless tobacco and goes for approximately 1 can/week. He has been intentionally trying to cut back on nicotine use. He will continue to work on tobacco abstention. Patient is morbidly obese with a weight of 134 kg and a BMI of 42.4 kg/m. He states that his weight has been stable. No significant increase or loss of weight. Patient denies any loss of appetite. No excessive thirst. Patient does have an elevated creatinine this admission. Baseline is 1.4. Current admission his creatinine is 2.81 mg/Ciara. I suspect this is from the Aldactone that the patient was started on last admission. Patient has no other acute complaints. Principal Diagnosis Pericarditis Discharge Exam Constitutional WD/WN, vitals as above Eyes EOM intact bilaterally; no conjunctival abnormality ENMT external ear and nose normal, oropharynx normal Neck trachea midline, no thyromegaly normal visual inspection Respiratory normal respiratory effort, lungs clear to auscultation no respiratory distress Cardiovascular RRR, no murmur, no edema Gastrointestinal (Abdomen) Inspection/Auscultation: abdomen normal to inspection; abdomen not distended Musculoskeletal no cyanosis or clubbing, extremities motor strength 5/5 Skin no rashes, warm and dry Neurologic moves all extremities and awake Psychiatric Orientation: alert, oriented to person and cooperative Discharge Data Allergies Allergy/AdvReac Type Severity Reaction Status Date / Time No Known Allergies Allergy Unverified 10/05/20 07:49 Consultations 10/05/20 08:17 ED Decision to Admit Stat 10/05/20 11:47 Consult Cardiology Routine Ordered Studies 10/05/20 07:53 US venous doppler [facility] Stat Hospital Course (1) Chest pain: Patient previously admitted and had a stress test echocardiogram showed no regional wall motion abnormalities. However, patient was unable to complete stress echo secondary to hypertension. EKG shows some ST abnormalities but no specific indication of AMI, particularly discussed lateral T wave inversions seen in the morning of 815 with cardiology they feel this is consistent with most likely pericarditis. Cardiology is not considering unstable angina or ACS, and did not recommend further evaluation for ischemic issues given atypical nature of pain Repeat echocardiogram shows no regional wall motion abnormalities persist with mild pericardial effusion Serial troponins 0.05->0.03 For possible pericarditis, started cautiously on renal dose adjusted colchicine, and glucocorticoids due to acute kidney injury as acute kidney injury does improve may consider stopping glucocorticoids in favor of nonsteroidalstherapy seems to be improving his symptoms Given markedly elevated D-dimer we will pursue CT angiogram if his renal function permits if not we will consider VQ scan. Creatinine on the morning of the 15th was 1.59 will hopefully get more close to 1.4 before considering dye therapy. Patient is stable on heparin drip at this time. Likely pericarditis. Discharged completely pain-free. Steroid taper per UTD guidelines (10 mg taper per week in daily dose) as well as colchicine. Will follow up with cardiology in 1-2 weeks. - Will need repeat echo to check pericardial effusion in 1-2 weeks. No indication on discharge of any complication. (2) Acute renal failure: likely atn from pre renal could be combination of diuretics and decreased po intake Hydrated with IV fluids with good improvement. Blood pressure gone up slightly fluid feeds were discontinued the morning of 10/07. Follow serial labs -> Cr was down to 1.45 on discharge. Can get repeat BMP with PCP in 1-2 weeks. (3) HLD (hyperlipidemia): Patient resistant to take a statin We will continue outpatient management at this time (4) HTN (hypertension): great improvement in previous elevated bp with amlodipine (5) Obesity: 134 kg BMI 42.4 kg/m Discussed need for weight loss Will continue work on this as an outpatient (6) D-dimer, elevated: D-dimer 13,500 ESR 110 CRP elevated 12.8 Unable to do a CTA of the chest secondary to acute kidney failure Empirically treating with heparin drip, if renal function does improve will have CTA, if not will consider V/Q scan, - V/Q scan on 10/08 was negative for PE. Stopped anticoagulation. (7) DVT prophylaxis: Started heparin drip prophylactically Elevated D-dimer Lower extremity duplex is negative for DVT Total Time Total Time Spent Total Time Spent (In Minutes): 35 Discharge Plan Discharge Items Patient Disposition: Home - Self-Care Reason For Visit: CHEST PAIN Discharge Diagnosis: Chest pain - Likely pericarditis Activity: Resume your previous activity Non-emergency contact: Primary Care Provider and [employer] Call non-emergency contact if: your symptoms worsen and your pain is worsening Follow-up/Referrals: Rob Reeys DO [Physician] - (Please see Dr. Reyes or another cardiology provider in 1-2 weeks to be sure you are doing well.) Liya Ames [Primary Care Provider] - Diet: Heart Healthy Addtl Attending Provider Instructions: Mr Hunter, You were admitted to the hospital with chest pain. We felt this was likely from inflammation surrounding the heart (called "pericarditis"). We started you on steroids and colchicine which have been shown to improve this. We also looked for a blood clot in the lungs, and this was negative, meaning we did *NOT* see one. Please take the steroid (prednisone) at 40 mg by mouth daily for 1 week, then drop to 30 mg by mouth daily for 1 week, then 20 mg for one week, then 10 mg daily for one week. The colchicine is is *NOT* tapered in this way and usually you are on it for several months to reduce the chance that this will recur. While you are on the steroids, please take an acid daniele to protect your stomach. Please see Dr. Reyes or another cardiology provider in 1-2 weeks to be sure you are doing well and not having any recurrence of your chest pain. Pending Studies at Discharge: No Stand-Alone Forms: My [facility], Smoking Cessation Medications and DC Order Prescriptions: New pantoprazole 40 mg Tablet,Delayed Release (Dr/Ec) 40 mg PO DAILY Qty: 30 RF: 0 colchicine [Colcrys] 0.6 mg Tablet 0.6 mg PO BID Qty: 60 RF: 0 prednisone 10 mg tablet See Rx Instructions .ROUTE .COMPLEX Qty: 70 RF: 0 Continued spironolacton-hydrochlorothiaz [Aldactazide] 25-25 mg tablet 1 tab PO QAM RF: 0 amlodipine [Norvasc] 5 mg tablet 5 mg PO QAM RF: 0 aspirin [Aspirin Low Dose] 81 mg Tablet,Delayed Release (Dr/Ec) 162 mg PO QAM RF: 0 ascorbic acid (vitamin C) [Vitamin C] 500 mg Tablet 500 mg PO QAM RF: 0 Discharge Orders: Discharge Order (Routine); Ordered 10/08/20 Ordered By: Adam Swift Admission Data Admit Date/Time: 10/05/20 10:09 Attending Provider: Adam Swift Admit Provider: Rocael Delgadillo Primary Care Provider: Liya Ames Other Providers: Lalo Lr ; Adam Swift Coding Level of Care Code D/C DAY MANAGEMENT >30 MINS Diagnoses Chest pain R07.9 Chest pain type: unspecified Acute renal failure N17.9 HLD (hyperlipidemia) E78.5 HTN (hypertension) I10 Obesity E66.9 D-dimer, elevated R79.89 DVT prophylaxis Z29.9
== END 2020-10-08 14:48 | disposition home or self-care (01) | DRG 315 ==
LOC: ED 06:05 → SUATTDRO 10:09 → 2S 10:09